=== PATIENT | male | born 1955 | race Caucasian/White ===

== ENCOUNTER 2016-07-16 14:53 | Inpatient (IN) | payer OTHER ==
[2016-07-16] VITALS (17 sets, daily range): BP systolic 112–135; BP diastolic 57–81; PULSE 63–79; RESP 15–28; TEMP 98.4; O2SAT 99–100; Ht 185.4 cm; Wt 99.9 kg
[~2016-07-16] VITALS: Ht 185.4 cm; Wt 99.9 kg
--- OUTSIDE RECORDS SUMMARY | 2016-07-16 14:58 | XMS REPORT | Referral Summary ---
Author Author [facility] Organization [facility] Address Unknown Phone Unavailable Care Team Providers Care Executive Director Global Brand Marketing Name Role Phone Breezy Rees Primary Care Physician [phone] Encounter VC Date(s): 03/18/16 - 04/04/16 [facility] [address] [place] [address] Discharge Disposition: 03-Correction Facility Attending Physician: Arcadio Chen MD Admitting Physician: Natasha Wise DO Vital Signs Most recent to 1 oldest [Reference Range]: Temperature Axillary 36.3 degC [35.2-36.7 degC] (03/27/16 3:47 AM) Temperature Oral 36.5 degC [35.8-37.3 degC] (04/04/16 4:00 AM) Temperature Temporal 36 degC Artery [36.3-37.8 *LOW* degC] (03/21/16 4:00 PM) Peripheral Pulse 74 bpm Rate [60-100 bpm] (04/04/16 8:59 AM) Heart Rate Monitored 73 bpm [60-100 bpm] (04/04/16 9:28 AM) Respiratory Rate 16 br/min [14-20 br/min] (04/04/16 9:28 AM) Blood Pressure 151/80 mmHg [90-140/60-90 mmHg] *HI* (04/04/16 8:59 AM) Mean Arterial 78 mmHg Pressure, Cuff (03/28/16 8:15 AM) Pulse Rate [60-100 74 bpm bpm] (04/04/16 2:30 AM) SpO2 95 % (04/04/16 9:28 AM) Remote Telemetry Ongoing (04/03/16 8:30 AM) Problem List Condition Effective Dates Status Health Status Informant Acute Active pain(Confirmed) At risk for Active infection(Confirmed) 1 At risk for Active injury(Confirmed)2 At risk of pressure Active sore(Confirmed) Fluid Active imbalance(Confirmed) 3 Impaired gas Active exchange(Confirmed)4 Morbid Active patient obesity(Confirmed) 1Problem added automatically by system based on initiation of At Risk for Infection in Nutrition Plan of Care 2Problem added automatically by system based on initiation of Risk for Injury Plan of Care 3Problem added automatically by system based on initiation of Fluid Volume Imbalance Plan of Care 4Problem added automatically by system based on initiation of Impaired Gas Exchange Plan of Care Allergies, Adverse Reactions, Alerts No Known Medication Allergies Medications albuterol 5 mg/mL (0.5%) inhalation solution 2.5 mg 0.5 mL, NEB, TID, 0 Refill(s) Start Date: 04/03/16 Status: Ordered amiodarone 200 mg oral tablet 200 mg 1 tabs, Oral, Daily, 0 Refill(s) Start Date: 04/03/16 Status: Ordered calcium acetate 667 mg oral capsule 1,334 mg 2 caps, Oral, TIDWM, 0 Refill(s) Start Date: 04/03/16 Status: Ordered darbepoetin atul 40 mcg/0.4 mL injectable solution 40 mcg 0.4 mL, SubCutaneous, q7day, 0 Refill(s) Start Date: 04/03/16 Status: Ordered Lopressor 100 mg oral tablet 100 mg 1 tabs, Oral, BID, 0 Refill(s) Start Date: 04/03/16 Status: Ordered [place] 5 mg-325 mg oral tablet 1 tabs, Oral, q6hr, Pain Moderate (4-6), 0 Refill(s) Start Date: 04/03/16 Status: Ordered One-A-Day Men 50 Plus 1 tabs, Oral, Daily Start Date: 03/18/16 Status: Ordered piperacillin-tazobactam 2 g-0.25 g intravenous injection See Instructions, 2.25 g IV q6hr thru 04/17/16, # 1 Each, 0 Refill(s), other reason (Rx) Start Date: 04/03/16 Status: Ordered Protonix 40 mg oral delayed release tablet 40 mg 1 tabs, Oral, Before Breakfast, 0 Refill(s) Start Date: 04/03/16 Status: Ordered sevelamer carbonate 800 mg oral tablet 800 mg 1 tabs, Oral, TIDWM, 0 Refill(s) Start Date: 04/03/16 Status: Ordered Results Blood Gases Most recent to 1 oldest [Reference Range]: pH [7.35-7.45] 7.40 (03/19/16 11:19 AM) pCO2 Art [35-45 32 mmHg mmHg] *LOW* (03/19/16 11:19 AM) Bicarbonate [22-26 20 mEq/L mEq/L] *LOW* (03/19/16 11:19 AM) Base Excess Art -4 [0-2] *LOW* (03/19/16 11:19 AM) O2 Sat Art 96.4 % [90.0-97.0 %] (03/19/16 11:19 AM) pO2 Art [80-100 86 mmHg mmHg] (03/19/16 11:19 AM) O2 Panel hfnc 3.5 lpm (03/19/16 11:19 AM) Spec Site A. radialis r. (03/19/16 11:19 AM) Hematology Most recent to 1 oldest [Reference Range]: WBC [4.8-10.8 15.6 10*3/uL 10*3/uL] *HI* (04/03/16 6:10 AM) RBC [4.60-6.20] 2.62 *LOW* (04/03/16 6:10 AM) Hgb [14.0-18.0 7.0 gm/dL gm/dL] *LOW* (04/03/16 6:10 AM) Hct [42.0-52.0 %] 24.0 % *LOW* (04/03/16 6:10 AM) MCV [82.0-99.0 fL] 91.6 fL (04/03/16 6:10 AM) MCH [27.0-32.0 pg] 26.7 pg *LOW* (04/03/16 6:10 AM) MCHC [32.0-36.0 29.2 gm/dL gm/dL] *LOW* (04/03/16 6:10 AM) RDW [11.5-14.5 %] 20.1 % *HI* (04/03/16 6:10 AM) Platelet [150-400 245 10*3/uL 10*3/uL] (04/03/16 6:10 AM) MPV [9.4-12.3 fL] 9.4 fL (04/03/16 6:10 AM) Immature 1.7 % Granulocytes *HI* [0.0-1.0 %] (03/28/16 7:53 AM) Neutrophils [51-75 86 % %] *HI* (04/03/16 6:10 AM) Band Man [0-8 %] 1 % (04/03/16 6:10 AM) [place] Man [0-1 %] 1 % (04/02/16 5:13 AM) Myelo Man [-1-0 %] 1 % *HI* (04/03/16 6:10 AM) Lymphocytes [20-46 5 % %] *LOW* (04/03/16 6:10 AM) Monocytes [4-11 %] 6 % (04/03/16 6:10 AM) Eosinophils [0-4 %] 1 % (04/03/16 6:10 AM) Basophils [0-2 %] 1 % (04/03/16 6:10 AM) Neutro Absolute 13.57 [1.90-7.00] *HI* (04/03/16 6:10 AM) Lymph Absolute 0.78 [0.80-3.30] *LOW* (04/03/16 6:10 AM) [place] Absolute 0.94 [0.30-1.00] (04/03/16 6:10 AM) Eos Absolute 0.16 [0.00-0.50] (04/03/16 6:10 AM) Baso Absolute 0.16 [0.00-0.20] (04/03/16 6:10 AM) Toxic Gran Occasional *ABN* (03/24/16 6:38 AM) Dohle Bodies Occasional *ABN* (03/24/16 6:38 AM) Hypochrom Occasional *ABN* (04/03/16 6:10 AM) Polychrom Occasional *ABN* (04/03/16 6:10 AM) Rouleaux Present *ABN* (04/02/16 5:13 AM) Nucleated RBC 0.0 /100 WBC Automated [0 /100 (04/03/16 6:10 AM) WBC] Differential Reviewed (04/03/16 6:10 AM) Coagulation Most recent to 1 oldest [Reference Range]: INR [0.9-1.2] 1.7 *HI* (03/23/16 7:32 AM) PTT [25.0-35.0 36.2 seconds seconds] *HI* (03/23/16 7:32 AM) Chemistry Most recent to 1 oldest [Reference Range]: Sodium Lvl [136-144 140 mEq/L mEq/L] (04/03/16 6:10 AM) Potassium Lvl 4.2 mEq/L [3.6-5.1 mEq/L] (04/03/16 6:10 AM) Chloride [99-109 101 mEq/L mEq/L] (04/03/16 6:10 AM) CO2 [22-32 mEq/L] 30 mEq/L (04/03/16 6:10 AM) AGAP [3-20] 9 (04/03/16 6:10 AM) BUN [4-20 mg/dL] 58 mg/dL *HI* (04/03/16 6:10 AM) Glucose Lvl [70-100 113 mg/dL mg/dL] *HI* (04/03/16 6:10 AM) Creatinine Lvl 4.86 mg/dL [0.64-1.27 mg/dL] *HI* (04/03/16 6:10 AM) eGFR [>60] 12 1 *ABN* (04/03/16 6:10 AM) Calcium Lvl 8.9 mg/dL [8.6-10.0 mg/dL] (04/03/16 6:10 AM) Albumin Lvl [3.5-4.8 1.7 gm/dL gm/dL] *LOW* (04/03/16 6:10 AM) Total Protein 5.5 gm/dL [6.1-7.9 gm/dL] *LOW* (03/21/16 4:06 AM) Globulin [1.9-4.3 3.8 gm/dL gm/dL] (03/21/16 4:06 AM) ALT [17-63 U/L] 24 U/L (03/21/16 4:06 AM) AST [15-41 U/L] 27 U/L (03/21/16 4:06 AM) Alk Phos [26-104 141 U/L U/L] *HI* (03/21/16 4:06 AM) Bili Total [0.2-1.2 1.2 mg/dL 2 mg/dL] (03/21/16 4:06 AM) Iron [65-175 mcg/dL] 17 mcg/dL *LOW* (03/19/16 9:23 AM) TIBC [268-490 125 mcg/dL mcg/dL] *LOW* (03/19/16 9:23 AM) Iron Sat [11-46 %] 14 % (03/19/16 9:23 AM) Transferrin [180-329 84 mg/dL mg/dL] *LOW* (03/19/16 9:23 AM) Ferritin Lvl [24-340 1541 ng/mL ng/mL] *HI* (03/31/16 5:59 AM) LDH [98-192 U/L] 244 U/L *HI* (03/18/16 2:29 PM) Magnesium Lvl 2.0 mg/dL [1.8-2.5 mg/dL] (04/03/16 6:10 AM) Uric Acid [4.8-8.7 9.3 mg/dL mg/dL] *HI* (03/19/16 4:11 AM) Phosphorus [2.4-4.7 5.0 mg/dL 3 mg/dL] *HI* (04/03/16 6:10 AM) Troponin [<0.06 <0.05 ng/mL ng/mL] (03/19/16 9:18 PM) Ammonia [9-35 31 mcmol/L mcmol/L] (03/19/16 2:46 PM) AFP [0.0-8.8 Intl 2.4 Intl Units/mL Units/mL] (03/19/16 4:11 AM) Lactic Acid Lvl 1.3 mEq/L [0.5-2.2 mEq/L] (03/18/16 2:29 PM) Vitamin B12 Lvl >2000 pg/mL [213-816 pg/mL] *HI* (03/19/16 2:46 PM) Folate Lvl [7.0-31.4 7.2 ng/mL ng/mL] (03/19/16 2:46 PM) PTH (Parathyroid 40.0 pg/mL Hormone) [12.0-88.0 (03/31/16 5:59 AM) pg/mL] CEA [0.0-5.0 ng/mL] 4.8 ng/mL 4 (03/18/16 2:29 PM) PSA (wihout Reflex 0.4 ng/mL 5 Free) [0.0-4.5 (03/19/16 4:11 AM) ng/mL] Chol [0-200 mg/dL] 73 mg/dL (03/19/16 9:23 AM) Trig [0-150 mg/dL] 49 mg/dL (03/19/16 9:23 AM) HDL [>40 mg/dL] 24 mg/dL *ABN* (03/19/16 9:23 AM) LDL [0-100 mg/dL] 39 mg/dL (03/19/16 9:23 AM) VLDL Cholesterol 10 mg/dL [0-30 mg/dL] (03/19/16 9:23 AM) Cardiac Risk 3.0 [0.0-5.7] (03/19/16 9:23 AM) HIV 1 and 2 Abs Negative (03/19/16 4:11 AM) TSH with Reflex Free 4.69 T4 [0.35-5.50] (03/20/16 3:22 AM) Hgb A1c [4.1-5.6 %] 5.8 % *HI* (03/20/16 3:22 AM) eAvg Glucose 119.8 mg/dL (03/20/16 3:22 AM) 1Result Comment: Multiply eGFR results by 1.21 for race. 2Result Comment: Naproxen, specifically the metabolite O-desmethylnaproxen, may cause spurious elevation in Total Bilirubin levels. 3Result Comment: High dosages of liposomal Amphotericin B (AmBisome) therapy or other drug preparations that use a liposomal envelope to facilitate drug delivery may cause falsely elevated results for phosphorus. 4Result Comment: Normal Ranges For CEA; Males: Non Smokers: <3.4 ng/ml Smokers: <6.2 ng/ml Females: Non Smokers: <2.5 ng/ml Smokers: <4.9 ng/ml 5Result Comment: AUA PSA Best Practice Guidelines: Age-Adjusted PSA Values by Ethnic Group Age Range Asians - Caucasians Americans 40-49 0-2.0 0-2.0 0-2.5 50-59 0-3.0 0-4.0 0-3.5 60-69 0-4.0 0-4.5 0-4.5 70-79 0-5.0 0-5.5 0-6.5 Urinalysis Most recent to 1 oldest [Reference Range]: UA Color Yellow (03/18/16 5:42 PM) UA Appear Cloudy *ABN* (03/18/16 5:42 PM) UA pH [5.0-8.0] 5.0 (03/18/16 5:42 PM) UA Leuk Est Negative [Negative] (03/18/16 5:42 PM) UA Nitrite Negative [Negative] (03/18/16 5:42 PM) UA Protein Negative [Negative] (03/18/16 5:42 PM) UA Glucose Negative [Negative] (03/18/16 5:42 PM) UA Ketones Negative [Negative] (03/18/16 5:42 PM) UA Urobilinogen Negative [<1.0] (03/18/16 5:42 PM) UA Bili [Negative] Negative (03/18/16 5:42 PM) UA Blood [Negative] Pos 2+ *ABN* (03/18/16 5:42 PM) UA Spec Grav 1.010 [1.003-1.030] (03/18/16 5:42 PM) Type [place] (03/18/16 5:42 PM) UA WBC [0-4] 5-10 *ABN* (03/18/16 5:42 PM) UA RBC [0-2] 20-50 *ABN* (03/18/16 5:42 PM) Epithelial Cells 0-2 (03/18/16 5:42 PM) UA Bacteria Rare (03/18/16 5:42 PM) UA Hyal Cast [0-3] 4-6 *ABN* (03/18/16 5:42 PM) UA Gran Cast 1-3 *ABN* (03/18/16 5:42 PM) UA Mucous Present (03/18/16 5:42 PM) U Eos [-1-0 %] 0 % (03/18/16 5:42 PM) Blood Bank Results Most recent to 1 oldest [Reference Range]: ABO/Rh O POS (04/03/16 2:13 PM) Antibody Screen Tube NEG (04/03/16 2:13 PM) Microbiology Reports TEST: Fluid Culture and Smear STATUS: Auth (Verified) BODY SITE: SOURCE: Fluid COLLECTED DATE/TIME: 03/20/16 12:45 PM Gram Smear Numerous (20-50/OIF) white blood cells No squamous epithelial cells Few (1-5/OIF) gram negative rods OIF=Oil Immersion Field LPF=Low Power Field TEST: Anaerobic Culture STATUS: Auth (Verified) BODY SITE: SOURCE: Fluid COLLECTED DATE/TIME: 03/20/16 12:45 PM Anaerobic Culture No anaerobes isolated TEST: Fluid Culture and Smear STATUS: Auth (Verified) BODY SITE: SOURCE: Fluid COLLECTED DATE/TIME: 03/20/16 12:42 PM Gram Smear Few (1-5/OIF) white blood cells No microorganisms observed OIF=Oil Immersion Field LPF=Low Power Field TEST: Anaerobic Culture STATUS: Auth (Verified) BODY SITE: SOURCE: Fluid COLLECTED DATE/TIME: 03/20/16 12:42 PM Anaerobic Culture No anaerobes isolated TEST: Fluid Culture and Smear STATUS: Auth (Verified) BODY SITE: SOURCE: Fluid COLLECTED DATE/TIME: 03/20/16 11:44 AM Gram Smear Numerous (20-50/OIF) white blood cells Numerous (20-50/OIF) red blood cells No microorganisms observed OIF=Oil Immersion Field LPF=Low Power Field TEST: Anaerobic Culture STATUS: Auth (Verified) BODY SITE: SOURCE: Fluid COLLECTED DATE/TIME: 03/20/16 11:44 AM Anaerobic Culture No anaerobes isolated TEST: Blood Culture1 STATUS: Auth (Verified) BODY SITE: SOURCE: Blood COLLECTED DATE/TIME: 03/18/16 2:29 PM Blood Culture No growth after 5 days of incubation. TEST: Blood Culture STATUS: Auth (Verified) BODY SITE: SOURCE: Blood COLLECTED DATE/TIME: 03/18/16 2:22 PM Blood Culture No growth after 5 days of incubation. INTERPRETIVE DATA 1Aerobic bottle ONLY received Immunizations No data available for this section Procedures Procedure Date Related Diagnosis Body Site Image-guided fluid collection drainage by 03/20/16 catheter (eg, abscess, hematoma, seroma, lymphocele, cyst); visceral (eg, kidney, liver, spleen, lung/mediastinum), percutaneous Arterial puncture, withdrawal of blood for 03/19/16 diagnosis Social History No data available for this section Assessment and Plan No data available for this section
--- OUTSIDE RECORDS SUMMARY | 2016-07-16 14:58 | XMS REPORT | Continuity of Care Document ---
Author Author [facility] Organization [facility] Address Unknown Phone Unavailable Allergies Medications Problems Procedures Results Encounters ACCT No. Visit Date/Time Discharge Status Pt. Type Provider Facility Loc./Unit Complaint [id number] 05/07/2016 08:20:00 PEN Outpatient CM [facility] S/P RT [facility]
--- OUTSIDE RECORDS SUMMARY | 2016-07-16 14:58 | XMS REPORT | Continuity of Care Document ---
Author Author [facility] Organization [facility] Address Unknown Phone Unavailable Support Name Relationship Address Phone CRISTO HOLMAN MD Caregiver [address] [place] [address] Unavailable JOSE MARIA GRIMALDO DO Caregiver [address] [place] [address] Unavailable JOSE MARIA GRIMALDO DO Caregiver [address] [place] [address] Unavailable JOSE MARIA GRIMALDO DO Caregiver [address] [place] [address] Unavailable DIANNA AWAN Next Of Kin [id number] [place] [address] Insurance Providers Guarantor Kailash Awan Address [address] [place] [address] Email [email or web address] Payer [facility] Preferred Policy Number [id number] Subscriber's Name Kailash Awan Relationship 18 Self Group Number [id number] Advance Directives Directive Response Recorded Date/Time Advanced Directives Type None 03/08/16 3:45pm Ordered Resuscitation Status Full Code 03/08/16 7:08pm Resuscitation Documents on File No 03/08/16 8:04pm DPOA for Healthcare Only No 03/14/16 3:25pm Living Will No 03/08/16 8:04pm Advance Directive Consult Information Given 03/12/16 12:08pm Problems Active Problems Medical Problem Onset Date Status Acute febrile illness Unknown Acute Acute renal failure Unknown Acute Bilateral pleural effusion Unknown Acute Coronavirus infection Unknown Acute History of TIA (transient ischemic attack) Unknown Resolved History of seasonal allergies Unknown Resolved Liver lesion, right lobe Unknown Acute Metabolic acidosis with normal anion gap and bicarbonate losses Unknown Acute Night sweats Unknown Acute Obesity Unknown Chronic Respiratory failure, acute Unknown Acute Septic shock with acute organ dysfunction due to anaerobic bacteria Unknown Resolved Past Problems Medical Problem Onset Date Dehydration Unknown Hyperemia Unknown Pleural effusion Unknown Sepsis Unknown Medications Past Home Medications Medication Directions Ordered Status Aspirin (Aspir 81) 81 Mg Tablet.dr 81 Mg Oral As Needed 03/08/16 Discontinued D-Methorphan/Pe/Acetaminophen (Tylenol Cold Max Day Caplet) 1 Each Tablet, 2 Tab Oral As Needed 03/08/16 Discontinued Dm/P-Ephed/Acetaminoph/Doxylam (Christine-Pontiac Plus Cold+Flu Pkt) 1 Each Powd.pack, 1 Packet Oral As Needed 03/08/16 Discontinued Dm/Pe/Acetaminophen/Doxylamine (Nighttime Severe Cold-Flu Liq) 355 Ml Liquid, 30 Ml Oral Bedtime as needed for Prn Orders 03/08/16 Discontinued Fexofenadine Hcl (Kandace Allergy) 180 Mg Tablet, 180 Mg Oral Daily as needed for Prn Orders 03/08/16 Discontinued Guaifenesin/Dextromethorphan (Mucinex Dm Er 600-30 Mg Tablet) 1 Each Tab.er.12h , 1 Tab Oral Every 12 Hrs Prn 03/08/16 Discontinued Multivitamin With Minerals (Men's One Daily) 1 Each Tablet, 1 Tab Oral Daily 03/08/16 Discontinued Vit D3-Vit C , 1 Cap Oral Twice A Day 03/08/16 Discontinued Social History Social History Problem Response Recorded Date/Time Onset Date Status Reason for Hospitalization Effusions 03/18/2016 10:07am Not Applicable Not Applicable Hx Substance Use No 03/08/2016 3:45pm Not Applicable Not Applicable Hx Alcohol Use Y OCC 03/08/2016 3:45pm Not Applicable Not Applicable Query Response Start Date Stop Date Smoking Status Never smoker Hospital Discharge Instructions Instructions: Care Instructions: Reason for Hospitalization: Effusions I was in the hospital because (patient own words): "TOLD TO GO TO ER BY DR. GRIMALDO FOR ELEVATED WBC" Discharge Diet: Renal, fluid restrict to 1500ml/day Discharge Activity: bedrest Follow Up Appointments: per [facility] Pending Lab / Results: Will be notified Wound/Incision Care: n/a Pain Scale Utilized to Educate Patient: 0-10 Pain Scale Pain Management/Treatment: n/a Expected Signs/Symptoms: n/a Notify Physician If: n/a During Business Hours:: Please call the physician's office After Business Hours:: Please call [phone] and have the aggregate conveyor operator page the physician. Condition at time of discharge: Fair Plan of Care Discharge Date 03/18/16 12:23pm Disposition 02 TO [facility] Instructions/Education Provided Pleural Effusion Prescriptions See Medication Section Additional Instructions/Education none Care Plan and Goals See Discharge Instructions Section Functional Status Query Response Date Recorded Mobility Status Transfer w/assist March 18, 2016 10:07am Assistive Devices None March 18, 2016 10:07am Activity Limitations Weakness Fatigue Shortness of breath March 18, 2016 10:07am Feeding Ability Assist March 18, 2016 10:07am Toileting Ability Dependent March 18, 2016 10:07am Grooming Ability Assist March 18, 2016 10:07am Dressing Ability Assist March 18, 2016 10:07am Driving Ability Assist March 18, 2016 10:07am Housework Ability Dependent March 18, 2016 10:07am Meal Preparation Ability Assist March 18, 2016 10:07am Stair Climbing Ability Assist March 18, 2016 10:07am Ability to complete ADL's impeded by Impaired Mobility March 18, 2016 10:07am Cognitive/Perceptual Impairments None March 18, 2016 10:07am Preferred Method of Learning Listening March 17, 2016 7:30pm Allergies, Adverse Reactions, Alerts Allergen Type Severity Reaction Status Last Updated No Known Drug Allergies Allergy Unknown Active 06/28/15 Immunizations Query Response on File Recorded Date/Time Hx Influenza Vaccination Y JAN 2016 03/08/16 8:08pm Hx Pneumococcal Vaccination No 03/08/16 8:08pm Hx Influenza Vaccination Y JAN 2016 03/08/16 8:08pm Influenza Vaccine Hx JANUARY 2016 03/10/16 12:00pm Vital Signs Acute Vital Signs Vital Response Date/Time Temperature (Fahrenheit) 97.1 deg F (96.8 - 99.1) 03/18/2016 12:00pm Temperature (Calculated Celsius) 36.52987 degrees C (36.0 - 37.3) 03/18/2016 12:00pm Pulse Rate (adult) 99 bpm (60 - 100) 03/18/2016 12:00pm Respiratory Rate 19 breaths/min (10 - 20) 03/18/2016 12:00pm O2 Sat by Pulse Oximetry 95 % (90 - 100) 03/18/2016 12:00pm Oxygen Delivery Method Bi-pap 03/17/2016 9:37pm Oxygen Delivery Method Bi-pap 03/18/2016 12:00pm Oxygen Flow Rate 3.00 L/min 03/18/2016 11:01am Fraction of Inspired Oxygen (FIO2) 25 % 03/18/2016 12:00pm Blood Pressure 134/89 mm Hg 03/18/2016 12:00pm Blood Pressure Source Automatic Cuff 03/18/2016 12:00pm Height (Feet) 6 feet 03/17/2016 12:42pm Height (Inches) 2.00 inches 03/17/2016 12:42pm Weight (Kilograms) 146.500 kg 03/17/2016 11:00am Body Mass Index (BMI) 33.0 03/08/2016 8:03pm Results Laboratory Results Test Name Result Units Flags Reference Collection Date/Time Result Date/ Time Comments White Blood Count 22.3 T/MM3 H 4.5-11.0 03/18/2016 4:03/18/2016 5: 22am Red Blood Count 3.90 M/MM3 L 4.50-5.90 03/18/2016 4:03/18/2016 5: 22am Hemoglobin 10.7 GM/DL L 13.5-17.5 03/18/2016 4:03/18/2016 5:22am Hematocrit 33.5 % L 41-53 03/18/2016 4:03/18/2016 5:22am Mean Corpuscular Volume 85.9 UM3 80-100 03/18/2016 4:03/18/2016 5: 22am Mean Corpuscular Hemoglobin 27.4 UUG 26-34 03/18/2016 4:2016 5:22am Mean Corpuscular Hemoglobin Concent 31.9 GM/DL 31-37 03/18/2016 4:03/18/2016 5:22am RDW Standard Deviation 52.6 FL H 36.9-50.2 03/18/2016 4:03/18/2016 5:22am Platelet Count 170 T/MM3 130-400 03/18/2016 4:03/18/2016 5:22am Mean Platelet Volume 11.0 UM3 9.4-12.4 03/18/2016 4:03/18/2016 5: 22am Neutrophils % (Manual) 76.0 % H 33-66 03/18/2016 4:03/18/2016 5: 28am Band Neutrophils % 10.0 % H 0-6 03/18/2016 4:03/18/2016 5:28am Lymphocytes % (Manual) 11.0 % L 23-45 03/18/2016 4:03/18/2016 5: 28am Monocytes % (Manual) 3.0 % 0-9.0 03/18/2016 4:03/18/2016 5:28am Eosinophils % (Manual) 2.0 % 0-4 03/17/2016 4:03/17/2016 6:29am Basophils % (Manual) 1.0 % 0-2 03/17/2016 4:03/17/2016 6:29am Metamyelocytes % 2.0 % H 0-0 03/15/2016 3:03/15/2016 6:46am Myelocytes % 1.0 % H 0-0 03/17/2016 4:03/17/2016 6:29am Reactive Lymphocytes % 1.0 % H 0-0 03/16/2016 4:03/16/2016 7:04am Band Neutrophils # 2.2 T/MM3 03/18/2016 4:03/18/2016 5:28am Absolute Neutrophils (Manual) 16.9 T/MM3 H 1.8-7.7 03/18/2016 4: 5:28am Lymphocytes # (Manual) 2.5 T/MM3 1-4.8 03/18/2016 4:03/18/2016 5: 28am Monocytes # (Manual) 0.7 T/MM3 0-0.8 03/18/2016 4:03/18/2016 5: 28am Eosinophils # (Manual) 0.4 T/MM3 0-0.5 03/17/2016 4:03/17/2016 6: 29am Basophils # (Manual) 0.2 T/MM3 0-0.2 03/17/2016 4:03/17/2016 6: 29am Metamyelocytes # 0.4 T/MM3 03/15/2016 3:03/15/2016 6:46am Myelocytes # 0.2 T/MM3 03/17/2016 4:03/17/2016 6:29am Reactive Lymphocytes # 0.2 T/MM3 H 0-0 03/16/2016 4:03/16/2016 7: 04am Nucleated Red Blood Cells 2 03/17/2016 4:03/17/2016 6:29am Red Cell Morphology Comment NORMAL 03/18/2016 4:03/18/2016 5: 28am Prothromb Time International Ratio 1.55 H 0.76-1.04 03/17/2016 4:03/17/2016 4:35am THERAPUTIC RANGE=2.00-3.00 FOR ANTI-THROMBOSIS THERAPUTIC RANGE=2.50-3.50 FOR IMPLANTED VALVE Icterus Index < 2 0-7 03/18/2016 4:03/18/2016 4:50am Chemistry Specimen Hemolysis < 15 0-25 03/18/2016 4:03/18/2016 4 :50am 0-25: Specimen Exhibited No Hemolysis. Turbidity < 20 0-20 03/18/2016 4:03/18/2016 4:50am Sodium Level 143 MEQ/L 134-144 03/18/2016 4:03/18/2016 4:50am Potassium Level 3.9 MEQ/L 3.6-5 03/18/2016 4:03/18/2016 4:50am Chloride Level 111 MEQ/L H 98-107 03/18/2016 4:03/18/2016 4:50am Carbon Dioxide Level 20 MEQ/L L 22-30 03/18/2016 4:03/18/2016 4: 50am Anion Gap 12 MEQ/L 5-15 03/18/2016 4:03/18/2016 4:50am Blood Urea Nitrogen 56.0 MG/DL *H 9-20 03/18/2016 4:03/18/2016 5: 35am Creatinine 4.0 MG/DL D H 0.8-1.5 03/18/2016 4:03/18/2016 5:35am BUN/Creatinine Ratio 14 RATIO 6-03/18/2016 4:03/18/2016 4:50am Glomerular Filtration Rate Calc 15 03/18/2016 4:03/18/2016 4: 50am Glucose Level 139 MG/DL H 75-110 03/18/2016 4:03/18/2016 4:50am Calculated Osmolality 293 MOSM/KG H 261-280 03/18/2016 4:2016 4:50am Calcium Level 8.2 MG/DL L 8.4-10.2 03/18/2016 4:03/18/2016 4:50am Phosphorus Level 7.1 MG/DL H 2.5-4.5 03/18/2016 4:03/18/2016 4: 50am Total Bilirubin 0.70 MG/DL 0.20-1.30 03/17/2016 4:03/17/2016 4: 41am Unconjugated Bilirubin 0.00 MG/DL 0.00-1.10 03/16/2016 4:2016 5:07am Conjugated Bilirubin 0.00 MG/DL 0.00-0.30 03/16/2016 4:03/16/2016 5:07am Alkaline Phosphatase 235 U/L H 38-126 03/17/2016 4:03/17/2016 4: 41am Total Protein 5.7 G/DL L 6.3-8.2 03/17/2016 4:03/17/2016 4:41am Albumin 2.2 G/DL L 3.5-5.0 03/18/2016 4:03/18/2016 4:50am Globulin 3.6 G/DL 2.4-3.6 03/17/2016 4:03/17/2016 4:41am Albumin/Globulin Ratio 0.6 RATIO L 1.1-2.2 03/17/2016 4:03/17/2016 4:41am Aspartate Amino Transf (AST/SGOT) 32 U/L 17-59 03/17/2016 4:2016 4:41am Alanine Aminotransferase (ALT/SGPT) 61 U/L 21-72 03/17/2016 4: 4:41am Troponin I 0.046 ng/ml 0-0.12 03/10/2016 4:04pm 03/10/2016 7:21pm Troponin values with a difference of 55% increase from orginal troponin value represent a true biological DELTA value. (%increase Calc=Orginal Troponin value, divided by subsequent Troponin value, multiplied by 100) C-Reactive Protein 143.7 MG/L H 0-9 03/15/2016 3:46am 03/15/2016 9:32am Magnesium Level 2.3 MG/DL 1.6-2.3 03/17/2016 4:13am 03/17/2016 4:41am Uric Acid 6.2 MG/DL 3.5-8.5 03/15/2016 3:46am 03/15/2016 4:13am Plasma Lactate 1.4 MMOL/L 0.6-2.2 03/12/2016 4:42am 03/12/2016 5:38am Procalcitonin 20.34 NG/ML *H 03/13/2016 4:59am 03/13/2016 6:02am PCT < /=0.5 ng/mL - sepsis not likely; PCT >0.5 and </=2 ng/mL - sepsis possible; PCT >2 ng/mL - sepsis likely; PCT >/=10 ng/mL - systemic inflammatory response - sepsis or septic shock highly indicated. Iron Level 33 UG/DL L 49-181 03/10/2016 4:04pm 03/12/2016 12:59am Total Iron Binding Capacity 148 UG/DL L 261-497 03/10/2016 4:04pm 2016 1:08am Percent Iron Saturation 22 % 13-59 03/10/2016 4:04pm 03/12/2016 1:08am Hepatitis A IgM Antibody NEGATIVE NEGATIVE 03/10/2016 4:04pm 2016 5:18am Hepatitis B Surface Antigen NEGATIVE NEGATIVE 03/10/2016 4:04pm 03/13 5:13am Hepatitis B Core IgM Antibody NEGATIVE NEGATIVE 03/10/2016 4:04pm 5:18am Hepatitis C Antibody NEGATIVE NEGATIVE 03/10/2016 4:04pm 03/13/2016 5 :30am Arterial Blood pH 7.440 7.350-7.450 03/17/2016 4:30pm 03/17/2016 4: 35pm Arterial Blood Partial Pressure CO2 29 MMHG L 34-45 03/17/2016 4:30pm 4:35pm Arterial Blood pO2 at Patient Temp 86 MMHG 80-100 03/17/2016 4:30pm 4:35pm Arterial Blood HCO3 20 MEQ/L L 22-26 03/17/2016 4:30pm 03/17/2016 4: 35pm Arterial Blood Total CO2 20.6 MEQ/L L 23-27 03/17/2016 4:30pm 2016 4:35pm Arterial Blood Base Excess -3.4 MMOL/L L -2.0-2.0 03/17/2016 4:30pm 4:35pm Arterial Blood Oxygen Saturation 97.0 % 95.0-98.0 03/17/2016 4:30pm 4:35pm Blood Gas Oxygen Percent Given 25 03/17/2016 4:30pm 03/17/2016 4: 35pm Oxygen Delivery Method (LAB) BPAP, % 03/17/2016 4:30pm 03/17/2016 4 :35pm Urine Random Creatinine 100.2 MG/DL 03/14/2016 2:10pm 03/14/2016 2: 32pm Urine Random Sodium 20 MEQ/L L 30-90 03/14/2016 2:10pm 03/14/2016 2: 32pm CSF Color COLORLESS 03/10/2016 11:20pm 03/10/2016 11:55pm CSF Turbidity CLEAR 03/10/2016 11:20pm 03/10/2016 11:55pm CSF Total Nucleated Cell Count 3 /MM3 0-5 03/10/2016 11:20pm 2016 12:08am CSF RBC 2000 /MM3 H 0-0 03/10/2016 11:20pm 03/11/2016 12:08am CSF Neutrophils 47 % 03/10/2016 11:20pm 03/11/2016 12:16am CSF Lymphocytes 53 % 03/10/2016 11:20pm 03/11/2016 12:16am CSF Monocytes 0 % 03/10/2016 11:20pm 03/11/2016 12:16am CSF Eosinophils % 0 % 03/10/2016 11:20pm 03/11/2016 12:16am CSF Basophils 0 % 03/10/2016 11:20pm 03/11/2016 12:16am CSF Other Cells % 0 % 03/10/2016 11:20pm 03/11/2016 12:16am CSF Glucose 42 MG/DL 40-70 03/10/2016 11:20pm 03/11/2016 12:01am CSF Total Protein 46 MG/DL 12-60 03/10/2016 11:20pm 03/11/2016 12:01am Stool Occult Blood NEGATIVE 03/14/2016 10:08pm 03/14/2016 10:24pm Adenovirus (PCR) NEGATIVE NEGATIVE 03/08/2016 7:10pm 03/08/2016 8: 40pm Coronavirus Type 229E (PCR) DETECTED A NEGATIVE 03/08/2016 7:10pm 01/2017 8:40pm Coronavirus Type HKU1 (PCR) NEGATIVE NEGATIVE 03/08/2016 7:10pm 03/08 8:40pm Coronavirus Type NL63 (PCR) NEGATIVE NEGATIVE 03/08/2016 7:10pm 03/08 8:40pm Coronavirus Type OC43 (PCR) NEGATIVE NEGATIVE 03/08/2016 7:10pm 03/08 8:40pm Human Metapneumovirus (PCR) NEGATIVE NEGATIVE 03/08/2016 7:10pm 03/08 8:40pm Enterovirus/Rhinovirus (PCR) NEGATIVE NEGATIVE 03/08/2016 7:10pm 01/2017 8:40pm Influenza Virus Type A (PCR) NEGATIVE NEGATIVE 03/08/2016 7:10pm 01/2017 8:40pm Influenza Virus Type B (PCR) NEGATIVE NEGATIVE 03/08/2016 7:10pm 01/2017 8:40pm Parainfluenza Type 1 (PCR) NEGATIVE NEGATIVE 03/08/2016 7:10pm 2016 8:40pm Parainfluenza Type 2 (PCR) NEGATIVE NEGATIVE 03/08/2016 7:10pm 2016 8:40pm Parainfluenza Type 3 (PCR) NEGATIVE NEGATIVE 03/08/2016 7:10pm 2016 8:40pm Parainfluenza Type 4 (PCR) NEGATIVE NEGATIVE 03/08/2016 7:10pm 2016 8:40pm Respiratory Syncytial Virus (PCR) NEGATIVE NEGATIVE 03/08/2016 7:10pm 03/08/2016 8:40pm Bordetella parapertussis DNA (PCR) NEGATIVE NEGATIVE 03/08/2016 7: 10pm 03/08/2016 8:40pm Chlamydia pneumoniae DNA (PCR) NEGATIVE NEGATIVE 03/08/2016 7:10pm 8:40pm Mycoplasma pneumoniae (PCR) NEGATIVE NEGATIVE 03/08/2016 7:10pm 03/08 8:40pm Escherichia coli (PCR) NEGATIVE NEGATIVE 03/10/2016 11:20pm 2016 7:26am Haemophilus influenzae DNA NEGATIVE NEGATIVE 03/10/2016 11:20pm 03/11 7:26am Listeria (PCR) NEGATIVE NEGATIVE 03/10/2016 11:20pm 03/11/2016 7: 26am Neisseria meningitidis (PCR) NEGATIVE NEGATIVE 03/10/2016 11:20pm 7:26am Group B Streptococcus (PCR) NEGATIVE NEGATIVE 03/10/2016 11:20pm 7:26am Streptococcus pneumoniae (PCR) NEGATIVE NEGATIVE 03/10/2016 11:20pm 03/11/2016 7:26am Cytomegalovirus DNA Detection NEGATIVE NEGATIVE 03/10/2016 11:20pm 7:26am Enterovirus/Rhinovirus (PCR) NEGATIVE NEGATIVE 03/10/2016 11:20pm 7:26am Herpes Simplex Virus I DNA (PCR) NEGATIVE NEGATIVE 03/10/2016 11:20pm 03/11/2016 7:26am Herpes Simplex Virus II DNA (PCR) NEGATIVE NEGATIVE 03/10/2016 11: 20pm 03/11/2016 7:26am Herpesvirus 6 DNA (PCR) NEGATIVE NEGATIVE 03/10/2016 11:20pm 2016 7:26am Parechovirus (PCR) NEGATIVE NEGATIVE 03/10/2016 11:20pm 03/11/2016 7: 26am Varicella-Zoster Virus DNA (PCR) NEGATIVE NEGATIVE 03/10/2016 11:20pm 03/11/2016 7:26am Cryptococcus Antigen NEGATIVE NEGATIVE 03/10/2016 11:20pm 03/11/2016 7:26am Correlate results from this panel with clinical history and epidemiological data when evaluating the patient. Urine Collection Type NULL INDWELLING 03/14/2016 2:10pm 2016 2:21pm Urine Color YELLOW YELLOW 03/14/2016 2:10pm 03/14/2016 2:21pm Urine Turbidity CLOUDY CLEAR 03/14/2016 2:10pm 03/14/2016 2:21pm Urine Specific Harper 1.025 1.015-1.025 03/14/2016 2:10pm 2016 2:21pm Urine pH 5.5 5.0-8.0 03/14/2016 2:1003/14/2016 2:21pm Urine Leukocyte Esterase NEGATIVE NEGATIVE 03/14/2016 2:10pm 2016 2:21pm Urine Nitrite NEGATIVE NEGATIVE 03/14/2016 2:1003/14/2016 2:21pm Urine Protein 2+ A NEGATIVE 03/14/2016 2:10pm 03/14/2016 2:21pm Urine Glucose (UA) NEGATIVE NEGATIVE 03/14/2016 2:10pm 03/14/2016 2: 21pm Urine Ketones NEGATIVE NEGATIVE 03/14/2016 2:1003/14/2016 2:21pm Urine Urobilinogen 0.2 EU/DL NORMAL 03/14/2016 2:10pm 03/14/2016 2: 21pm Urine Bilirubin NEGATIVE NEGATIVE 03/14/2016 2:1003/14/2016 2: 21pm Urine Blood 3+ A NEGATIVE 03/14/2016 2:10pm 03/14/2016 2:21pm Urine WBC 1-3 /HPF 0-5 03/14/2016 2:10pm 03/14/2016 2:34pm Urine RBC 50-200 /HPF H 0-3 03/14/2016 2:10pm 03/14/2016 2:34pm Urine Squamous Epithelial Cells 0-5 03/14/2016 2:10pm 03/14/2016 2: 34pm Urine Bacteria 4+ H NEGATIVE 03/14/2016 2:10pm 03/14/2016 2:34pm Urine Hyaline Casts 0-1 /LPF 03/08/2016 7:10pm 03/08/2016 7:27pm Urine Fine Granular Casts 0-1 /LPF 03/14/2016 2:10pm 03/14/2016 2: 34pm Urine Culture Indicated CULT NOT INDICATED 03/14/2016 2:10pm 2016 2:34pm Anti-Nuclear Antibody (LAB) Negative Negative 03/10/2016 4:04pm 03/12 10:39pm ANYI Panel, Quantitative performed at [facility] Reference Lab, [address] [place] [address] Crt Radha Munroe DO Urine Eosinophils 0 % -1-0 03/14/2016 2:10pm 03/14/2016 10:02pm Eosinophil Count, Urine performed at [facility] Reference Lab, [address] [place] [address] Crt Radha Munroe DO Gamma Glutamyl Transpeptidase 101 U/L H 12-64 03/14/2016 5:42am 2016 3:46pm GGT performed at [facility] Reference Lab, [address] [place] [id number] Crt Radha Munroe DO West Nile Virus IgG Antibody Negative Negative 03/09/2016 4:37am 10:34pm Test Performed by: [place] [address] Elevator Repairer Apprentice: Carlos Schaffer II, M.D., Ph.D. West Nile Virus Antibody IgG and IgM, [place] [address] Crt Sarbjit Fisher MD Test Performed by: [place] [address] Elevator Repairer Apprentice: Carlos Schaffer II, M.D., Ph.D. --- 03/14/16 2234 --- WEST NILE IGG previously reported as: Negative Test Performed by: [place] [address] Elevator Repairer Apprentice: Carlos Schaffer II, M.D., Ph.D. West Nile Virus Antibody IgG and IgM, [place] [address] Crt Sarbjit Fisher MD Test Performed by: [place] [address] Elevator Repairer Apprentice: Carlos Schaffer II, M.D., Ph.D. West Nile Virus IgM Antibody Negative Negative 03/09/2016 4:37am 10:34pm West Nile Virus Interpretation SEE BELOW 03/09/2016 4:37am 2016 10:34pm No antibodies to WNV detected. Repeat testing in 10-14 days if clinical suspicion persists. Test Performed by: [place] [address] Elevator Repairer Apprentice: Carlos Schaffer II, M.D., Ph.D. West Nile Virus Antibody IgG and IgM, [place] [address] Crt Sarbjit Fisher MD Microbiology Results Procedure Source Organism/Result Collection Date/Time Result Date/Time Result Status Blood Culture Peripheral/Iv Start BACTEROIDES FRAGILIS 03/08/2016 4:20pm 03/13/2016 4:11pm Final Blood Culture Cath/Port/Line/Picc NO GROWTH AFTER 5 DAYS 03/10/2016 4:06pm 03/15/2016 4:07pm Final CSF Culture Cerebral Spinal Fluid NO GROWTH AFTER 72 HOURS 03/10/2016 11: 20pm 03/13/2016 11:49pm Final Name: KAILASH AWAN Unit #: [id number] : 1955 Sex: M DISCHARGE SUMMARY Admit Date: 03/08/16 Report #: [id number] [facility] General Date Date DATE: 03/18/16 TIME: 11:57 Attending Physician Jelly Soriano DO Admitting Physician Jose Maria Grimaldo DO Consulting Physician Kye Celis MD, MD Jason Taylor, MD Admitting Diagnosis pleural effusion, elevated white count Discharge Diagnosis Acute respiratory failure Bacteroides septicemia Acute renal failure Volume overload Liver abscess Coronavirus Procedures Lumbar puncture After informed consent obtained - pt was assisted to right lateral side. Back was cleaned and prep with chloraprep scrub then sterile drape applied. Local infiltrate with lidocaine 1% 3 ml at L3-4 space. Then 24 gauge spinal needle advanced until CSF to free flow. Negative paraesthesia negative blood. Approximately 16ml spinal fluid collected in sterile test tubes and labeled. Pt tolerated procedure with out difficulty. Arterial line placement Right wrist cleaned with chloraprep scrub then 20 gauge Arrow art-line catheter advanced with ultrasound guidance. Catheter then secured with silk suture and dressed with tegaderm dressing. Pressure line flushed and zeroed prior to connecting to catheter. Pt tolerated without complication. Liver Biopsy Impression: Successful sonographic guided biopsy of right hepatic lobe masses with pathology pending. Patient seemed to tolerate the procedure well. Laboratory Laboratory Tests Test 03/17/16 04:13 03/17/16 16:30 03/18/16 04:27 White Blood Count 20.9T/MM3 (4.5-11.0) 22.3T/MM3 (4.5-11.0) Red Blood Count 3.85M/MM3 (4.50-5.90) 3.90M/MM3 (4.50-5.90) Hemoglobin 10.6GM/DL (13.5-17.5) 10.7GM/DL (13.5-17.5) Hematocrit 33.2% (41-53) 33.5% (41-53) Mean Corpuscular Volume 86.2UM3 (80-100) 85.9UM3 (80-100) Mean Corpuscular Hemoglobin 27.5UUG (26-34) 27.4UUG (26-34) Mean Corpuscular Hemoglobin Concent 31.9GM/DL (31-37) 31.9GM/DL (31-37) RDW Standard Deviation 52.7FL (36.9-50.2) 52.6FL (36.9-50.2) Platelet Count 185T/MM3 (130-400) 170T/MM3 (130-400) Mean Platelet Volume 10.7UM3 (9.4-12.4) 11.0UM3 (9.4-12.4) Neutrophils % (Manual) 77.0% (33-66) 76.0% (33-66) Band Neutrophils % 6.0% (0-6) 10.0% (0-6) Lymphocytes % (Manual) 10.0% (23-45) 11.0% (23-45) Monocytes % (Manual) 3.0% (0-9.0) 3.0% (0-9.0) Eosinophils % (Manual) 2.0% (0-4) Basophils % (Manual) 1.0% (0-2) Myelocytes % 1.0% (0-0) Absolute Neutrophils (Manual) 16.1T/MM3 (1.8-7.7) 16.9T/MM3 (1.8-7.7) Band Neutrophils # 1.3T/MM3 2.2T/MM3 Lymphocytes # (Manual) 2.1T/MM3 (1-4.8) 2.5T/MM3 (1-4.8) Monocytes # (Manual) 0.6T/MM3 (0-0.8) 0.7T/MM3 (0-0.8) Eosinophils # (Manual) 0.4T/MM3 (0-0.5) Basophils # (Manual) 0.2T/MM3 (0-0.2) Myelocytes # 0.2T/MM3 Nucleated Red Blood Cells 2 Red Cell Morphology Comment Normal Normal Prothromb Time International Ratio 1.55 (0.76-1.04) Turbidity < 20 (0-20) < 20 (0-20) Sodium Level 144MEQ/L (134-144) 143MEQ/L (134-144) Potassium Level 3.7MEQ/L (3.6-5) 3.9MEQ/L (3.6-5) Chloride Level 114MEQ/L (98-107) 111MEQ/L (98-107) Carbon Dioxide Level 18MEQ/L (22-30) 20MEQ/L (22-30) Anion Gap 12MEQ/L (5-15) 12MEQ/L (5-15) Blood Urea Nitrogen 50.0MG/DL (9-20) 56.0MG/DL (9-20) Creatinine 3.6MG/DL (0.8-1.5) 4.0MG/DL (0.8-1.5) Glomerular Filtration Rate Calc 17 15 BUN/Creatinine Ratio 14RATIO (6-26) 14RATIO (6-26) Glucose Level 126MG/DL (75-110) 139MG/DL (75-110) Calculated Osmolality 292MOSM/KG (261-280) 293MOSM/KG (261-280) Calcium Level 8.0MG/DL (8.4-10.2) 8.2MG/DL (8.4-10.2) Phosphorus Level 6.8MG/DL (2.5-4.5) 7.1MG/DL (2.5-4.5) Magnesium Level 2.3MG/DL (1.6-2.3) Total Bilirubin 0.70MG/DL (0.20-1.30) Icterus Index < 2 (0-7) < 2 (0-7) Aspartate Amino Transf (AST/SGOT) 32U/L (17-59) Alanine Aminotransferase (ALT/SGPT) 61U/L (21-72) Alkaline Phosphatase 235U/L (38-126) Total Protein 5.7G/DL (6.3-8.2) Albumin 2.1G/DL (3.5-5.0) 2.2G/DL (3.5-5.0) Globulin 3.6G/DL (2.4-3.6) Albumin/Globulin Ratio 0.6RATIO (1.1-2.2) Chemistry Specimen Hemolysis < 15 (0-25) < 15 (0-25) Arterial Blood pH 7.440 (7.350-7.450) Arterial Blood Partial Pressure CO2 29MMHG (34-45) Arterial Blood pO2 at Patient Temp 86MMHG (80-100) Arterial Blood HCO3 20MEQ/L (22-26) Arterial Blood Total CO2 20.6MEQ/L (23-27) Arterial Blood Oxygen Saturation 97.0% (95.0-98.0) Arterial Blood Base Excess -3.4MMOL/L (-2.0-2.0) Oxygen Delivery Method (LAB) Bpap, % Blood Gas Oxygen Liter Flow Blood Gas Oxygen Percent Given 25 Blood Gas Vent Rate (0-30) Blood Gas Tidal Volume ML (0-1200) Immature Granulocyte % (Auto) % (0.0-0.5) Neutrophils (%) (Auto) % (33-66) Lymphocytes (%) (Auto) % (23-45) Monocytes (%) (Auto) % (0-9.0) Eosinophils (%) (Auto) % (0-4) Basophils (%) (Auto) % (0-2) Absolute Immature Granulocyte (auto T/MM3 (0.00-0.03) Absolute Neutrophils (auto) T/MM3 (1.8-7.7) Absolute Lymphocytes (auto) T/MM3 (1-4.8) Absolute Monocytes (auto) T/MM3 (0-0.8) Absolute Eosinophils (auto) T/MM3 (0-0.5) Absolute Basophils (auto) T/MM3 (0-0.2) Microbiology Blood cultures X 2 03/08/16 - bacteroides fragilis Blood cultures X 2 03/10/16 - no growth to date CSF - no growth Radiology CT Chest/Abdomen/Pelvis Impression: 1. Large low-attenuation lesions replacing most of the right lobe of the liver. Leading differential considerations are metastatic disease and hepatic abscess. Percutaneous image guided biopsy could be performed for further evaluation. No obvious primary malignancy seen elsewhere. 2. Pleural effusions and hypoinflation. Abdominal Ultrasound 1. Large liver lesions in the right lobe could be due to metastatic disease or hepatic abscess. These are better evaluated on the contrast-enhanced CT. 2. Splenomegaly History of Present Illness Patient was seen and examined in the emergency department after speaking with emergency room physician. Kailash is a very pleasant 60-year-old obese white male who is usually fairly good state of health. He has become increasingly ill over the past 4-6 weeks. He was seen in the office the day prior to admission with extreme fatigue and chest heaviness. EKG performed at that time was negative for ischemia. His blood was drawn including CBC and CMP. His white count resulted at 27,000. His had called the office stating that Kailash was continuing to worsen and was advised to report to the emergency department. He was evaluated at that time and found to have a white count still over 22,000. Very lethargic with a fever over 101 after Tylenol had been administered he was tachycardic weak and dyspneic. Chest x-ray was fairly unremarkable he was admitted for febrile illness with leukocytosis and sepsis. Hospital Course Hospital Problem List Septic Shock -Viral panel positive for Frye virus, likely liver abscess -1/2 blood cx positive for Gram negative rods, repeat blood cx's pending -Other Infectious work up pending-->HIV test, Hepatitis panel, echo for endocarditis, west nile virus, CSF studies -Lactic acid wnls, crp and procal elevated -Abx--> Vanc + Zosyn D2, pharmacy to dose vanc and chk trough -NS IV fluids 150/hr Liver Lesion -Liver abscess (more likely with current clinical picture) vs. metastatic disease -Will need biopsy, will place order but will need to be called in AM on Saturday -Likely reason for transaminitis, work up as above Daily Hospital Summary 03/10/16- covering for Dr. Grimaldo Patient has continuing shaking that is uncontrolled for the last hour, despite giving Tylenol. He asks for something further, perhaps Benadryl. IV Benadryl and Toradol ordered as needed. One of 2 blood cultures are positive today with gram negative rods. Patient is currently on IV Levaquin only. Will discuss this further with Dr. Elmore. Otherwise, continue with scheduled DuoNeb breathing treatments every 6 hours and when necessary. Did review labs. Patient continues to have an elevated white count with increase in bandemia. This morning at 8%, WBC count 17.7 Potassium did decrease to 3.3. Will replace orally. LFTs remain elevated, etiology is unclear. However, this could be a stress response from sepsis. CBC and CMP ordered for tomorrow Will discuss further with attending Dr Elmore. 03/11/2016-covering for Dr. Grimaldo Pt deteriorated yesterday evening as he began having severe rigors with diaphoresis and went into septic shock. Pt received 3.5L NS bolus, abx coverage expanded to include vanc in addition to the Zosyn that was already started earlier, started on levophed and pt was transferred to ICU. Overnight anesthesia was asked to do LP and an art line. Pt did well and this AM pt was able to be weaned of pressors and overall reports feeling much better. CT abdomen shows multiple liver lesions, concern for abscess vs. metastatic disease. Will need FNA tomorrow. Will cont. abx, IV fluids, and monitor closely in ICU. 03/12/16: Patient septic shock secondary to bacteremia ( Bacteroides fragilis). Currently he is on Zosyn and Flagyl awaiting liver biopsy. If he has a liver abscess I will proceed with transesophageal echo to look for evidence of bacterial endocarditis. If malignancy then oncology consult 03/13/16: Pathology report demonstrates no evidence of malignancy. His white blood cell count has decreased as are his liver enzymes. His creatinine was markedly elevated this morning and his urine output was decreased, therefore I gave him multiple IV normal saline boluses with good result. His blood pressure is good he is mildly tachycardic. He continues to have audible wheezes but appears to be responding well to breathing treatments with IPPB. I will order a transesophageal echocardiogram tomorrow to assess for arterial endocarditis which would change the course and duration of a ntibiotic therapy. 03/14/16: Kailash has worsening renal function today. I have given him multiple normal saline 1 L boluses. I am consulting Yehuda Velez of nephrology for assistance. Fractional excretion of sodium will be calculated. I've changed his antibiotics to clindamycin 900 mg every 8 hours to narrow his antibiotics. Bacteria is also more sensitive to clindamycin and there is no renal adjustment necessary. 03/15/16: Discussed with nephrology today. Bumex 2 mg nightly IV. Good urinary output. I will recheck his labs tomorrow and continue him on IV Bumex for now. 03/16/16: Patient continues on 2 mg Bumex IV every 8 hours. He seems to be responding fairly well with better urine output. His metabolic acidosis has worsened, therefore I have started a bicarbonate drip. He continues on clindamycin. No chest pain. He is wheezing in his right upper and lower lung pires, but this appears better than yesterday. He is tolerating BiPAP well. 03/17/16: Covering for Dr. Grimaldo. Urine output better yesterday, but creatinine trended up. Remains on bicarb drip and IV bumex. Will discuss with neprhology if possible. No emergent dialysis need today. 03/18/16: Creatinine continues to increase. UOP slightly increased with increased diuretics per renal instruction last night. Remains on bipap 100% of time. WBC and bandemia increased overnight. Will transfer to [facility] today for specialist care. Problems: (1) Respiratory failure, acute Status: Acute Assessment & Plan: on BIPAP 100% of time now. (2) Metabolic acidosis with normal anion gap and bicarbonate losses Status: Acute Assessment & Plan: improved off bicarb overnight. (3) Bilateral pleural effusion Status: Acute Assessment & Plan: diuresis per renal follow cXR (4) Acute renal failure Status: Acute Assessment & Plan: Creatinine trending up with diuresis, may be expected. increased bumex yesterday afternoon and gave metolozone as well Urine output ok Hold nephrotoxins. Dr. Velez following - spoke to Dr. Wilson covering (5) Septic shock with acute organ dysfunction due to anaerobic bacteria Status: Resolved (6) Liver lesion, right lobe Status: Acute Assessment & Plan: bx done without malignancy likely liver abscess need further workup for etiology of liver abscess (7) Sepsis Status: Acute Assessment & Plan: Blood cultures positive for Bacteroides fragilis, repeat BC NGTD Dr. Ellie Hayes consulted On rocephin and flagyl (8) Coronavirus infection Status: Acute (9) Acute febrile illness Status: Acute (10) Dehydration Status: Acute (11) Night sweats Status: Acute (12) Hyperemia Status: Acute (13) Obesity Status: Chronic (14) History of seasonal allergies Status: Resolved (15) History of TIA (transient ischemic attack) Status: Resolved Code Status Full Code Home Meds Discontinued Reported Medications Aspirin (Aspir 81) 81 Mg Tablet.dr, 81 MG PO PRN 03/08/16 D-Methorphan/PE/Acetaminophen (Tylenol Cold Max Day Caplet) 1 Each Tablet, 2 TAB PO PRN 03/08/16 Fexofenadine HCl (Kandace Allergy) 180 Mg Tablet, 180 MG PO DAILY Y for PRN ORDERS 03/08/16 Dm/P-Ephed/Acetaminoph/Doxylam (Christine-[place] Plus Cold+Flu Pkt) 1 Each Powd.pack , 1 PACKET PO PRN 03/08/16 Multivitamin with Minerals (Men's One Daily) 1 Each Tablet, 1 TAB PO DAILY 03/08/16 Guaifenesin/Dextromethorphan (Mucinex Dm ER 600-30 mg Tablet) 1 Each Tab.er.12h , 1 TAB PO [id number] 03/08/16 Dm/PE/Acetaminophen/Doxylamine (Nighttime Severe Cold-Flu Liq) 355 Ml Liquid, 30 ML PO HS Y for PRN ORDERS 03/08/16 [vit d3-vit c] No Conflict Check, 1 CAP PO BID 03/08/16 Face to Face Encounter I met with patient on the day of dismissal and discussed follow up appointments , medications, and safety plan. Discharge Disposition fair Copies To 1: JOSE MARIA GRIMALDO SHAUNA M DO Mar 18, 2016 12:00 Procedures Procedure Status Date Provider(s) Chest x-ray 2vw frontal&latl Completed 02/09/16 Chylmd pneum dna amp probe Completed 02/09/16 M.pneumon dna amp probe Completed 02/09/16 Resp virus 12-25 targets Completed 02/09/16 Detect agent nos dna amp Completed 02/09/16 Encounters Encounter Location Arrival/Admit Date Discharge/Depart Date Attending Provider Discharged Inpatient [facility] 03/08/16 7:07pm 03/18/16 12:23pm JOSE MARIA GRIMALDO DO [facility] 02/09/16 1:29pm JOSE MARIA GRIMALDO DO
[2016-07-16] MEDS ORDERED: FEXO180T94 PO (16:28)
--- OUTSIDE RECORDS SUMMARY | 2016-07-16 16:31 | XMS REPORT | Continuity of Care Document ---
Author Author [facility] Organization [facility] Address Unknown Phone Unavailable Allergies Medications Problems Procedures Results Encounters ACCT No. Visit Date/Time Discharge Status Pt. Type Provider Facility Loc./Unit Complaint [id number] 05/07/2016 08:20:00 PEN Outpatient CM CHOW [facility] S/P RT [facility]
[2016-07-16] MEDS ORDERED: AMIO200T2 PO (16:34)
[2016-07-16] MEDS ORDERED: MELA3TAB30 PO (16:34)
[2016-07-16] MEDS ORDERED: PHEN-846 PO (16:34)
[2016-07-16] MEDS ORDERED: METO10TA3 PO (16:34)
[2016-07-16] MEDS ORDERED: AMLO5TAB2 PO (16:34)
[2016-07-16] MEDS ORDERED: CHOL100018 PO (16:38)
[2016-07-16] MEDS ORDERED: MULT-447 PO (16:38)
[2016-07-16] MEDS ORDERED: ASCO500T9 PO (16:38)
[2016-07-16 16:57] LABS: HCT - HEMATOCRIT 32.5 % (41-53); HGB - HEMOGLOBIN 10.4 GM/DL (13.5-17.5); MEAN PLATELET VOLUME 9.1 UM3 (9.4-12.4); RED BLOOD COUNT 3.25 M/MM3 (4.50-5.90); WBC - WHITE BLOOD COUNT 12.4 T/MM3 (4.5-11.0)
[2016-07-16 16:59] LABS: BLOOD, URINE NEGATIVE (NEGATIVE); COLOR,URINE AMBER (YELLOW); LEUKOCYTE ESTERASE ,URINE NEGATIVE (NEGATIVE); NITRITE,URINE POSITIVE (NEGATIVE)
[2016-07-16 17:08] LABS: BACTERIA,URINE NONE SEEN (NEGATIVE); RBC,URINE NONE SEEN /HPF (0-3); SQUAMOUS EPITHELIAL CELL,UR 0-5
[2016-07-16 17:10] LABS: ALBUMIN/GLOBULIN RATIO 0.6 RATIO (1.1-2.2); ALT (SGPT) 189 U/L (21-72); ANION GAP 14 MEQ/L (5-15); AST (SGOT) 254 U/L (17-59); BUN/CREATININE RATIO 14 RATIO (6-26); CALCIUM 9.6 MG/DL (8.4-10.2); CHLORIDE 102 MEQ/L (98-107); CO2 - CARBON DIOXIDE 26 MEQ/L (22-30); CREATININE 0.7 MG/DL (0.8-1.5); GLOMERULAR FILTRATION RATE 114; GLUCOSE 109 MG/DL (75-110); LIPASE 26 U/L (23-300); SODIUM 142 MEQ/L (134-144); TOTAL PROTEIN 7.7 G/DL (6.3-8.2)
[2016-07-16 17:16] LABS: ALKALINE PHOSPHATASE 1623 U/L (38-126)
[2016-07-16 17:19] LABS: BAND NEUTROPHILS # 0.5 T/MM3; BASOPHILS # (MANUAL) 0.2 T/MM3 (0-0.2); EOSINOPHILS # (MANUAL) 0.2 T/MM3 (0-0.5); LYMPHOCYTES # (MANUAL) 1.9 T/MM3 (1-4.8); MONOCYTES # (MANUAL) 0.1 T/MM3 (0-0.8); NEUTROPHILS #(MANUAL)-ABSOLUTE 9.4 T/MM3 (1.8-7.7); NUCLEATED RED BLOOD CELLS 2; TOTAL CELLS COUNTED 100 %
[2016-07-16 17:21] LABS: POLYCHROMASIA 1+
--- NOTE | 2016-07-16 17:21 | ERPDOC ---
Departure Disposition Decision Date: July 16, 2016 Disposition Decision Time: 18:30 Disposition: 02 TO [facility] Impression Impression Impression: Primary Impression: Liver lesion Severity: Mild Condition: Improved Seen By: Physician only Referrals: JOSE MARIA GRIMALDO DO (Family) Problems/Meds/Labs Reviewed?: Yes Medications reviewed and manag: Yes Follow up care ordered?: Yes Mental Status: Alert, Oriented HPI - Abdominal Pain General Chief Complaint: Male Urogenital Problems Stated Complaint: URINARY TRACT INFECTION Time Seen by Provider: 16:14 Source: patient, family History/Exam Limitations: no limitations HPI - Abdominal Pain Initial Comments 60-year-old male presents to the emergency department with a chief complaint of noticing a yellow coloration to his skin. Patient states that he noticed a slight irritated sensation with urination on and had a urinalysis checked which showed elevated urobilinogen. On Saturday the patient noted that his skin began to turn yellow. This has been persistent in nature since onset. Patient does note a bit of mild suprapubic abdominal pressure without radiation. He denies any other complaints or associated symptoms. Patient called his primary care physician's (Dr. Grimaldo's) office and was referred to the emergency Department due to the yellow coloring of his skin. Patient does have a history of liver abscess in the past with similar symptoms. Patient has noted a gradual onset of symptoms which have been persistent in nature since onset. Occurred At: home Onset: Gradual Allergies: Coded Allergies: No Known Drug Allergies (Verified Allergy, Unknown, 07/16/16) Past History Patient Medical History Problem List Updates: Liver Abscess, Acute Renal Failure Patient Surgical History Chest tube insertion, Hernia Repair, Abscess Drains from Liver Past Medical History Pt denies signifigant PMH Metabolic: other ENMT: allergies Neurological: TIA Family History Family PMH: FOUND: hypertension Vaccines Hx Influenza Vaccination: Yes (JAN 2016) Hx Pneumococcal Vaccination: No Social History Smoking Status: Never smoker Does patient use chewing tobac: No Second Hand Exposure: No Substance Use Type: does not use Alcohol Intake: none Last Drink: unknown Marital Status: Sexuality: female partner Housing: house Household Members: spouse Service: No Current Occupational Status: employed Review of Systems Constitutional Constitutional: DENIES: chills, fever Eyes General: DENIES: erythema, exudate Vision: DENIES: acuity, blurring ENMT Ears: DENIES: drainage, pain Balance: DENIES: ataxia, falling to one side Nose: DENIES: nosebleeds, pain Mouth/Throat: DENIES: painful swallowing, sore throat Teeth: DENIES: pain Jaw: DENIES: pain Cardiovascular Cardiac: DENIES: chest pain, dyspnea on exertion Rhythm/Rate: DENIES: irregular beat, palpitations Vascular: DENIES: pedal edema, unilateral swelling Pulmonary Respiratory: DENIES: cough, dyspnea, pleuritic chest pain, sputum GI Upper Abdomen: DENIES: nausea, pain, vomiting Lower Abdomen: pain, DENIES: diarrhea General: burning, DENIES: anuria Musculoskeletal General: DENIES: joint pain, tenderness Integumentary Skin: DENIES: itching, rash Neurological General: DENIES: headache, numbness Psychiatric Psychiatric: DENIES: emotional instability, suicidal ideation/attempt Endocrine Endocrine: DENIES: polydipsia, polyphagia Hematologic/Lymphatic Hematologic/Lymphatic: DENIES: frequent nosebleeds, lymphadenopathy Allergic/Immunological Allergic/Immunoligical: DENIES: allergic reactions, hives Physical Exam General General Nourishment: well nourished, well developed, appears stated age, no acute distress, adult General Body Habitus: well groomed Vitals and Pain First Documented Vital Signs Date Time Temp Pulse Resp B/P Pulse Ox O2 Delivery O2 Flow Rate FiO2 07/16/16 15:01 98.9 94 19 128/91 98 Room Air Weight: Kilograms: 93.000 Height (feet): 6 Height (inches): 1.00 Triage Pain Scale: RN VS reviewed by Provider: Yes Normal Exams: Head: Normocephalic w/o trauma Eyes: Pupils are PERRLA w/ EOMI, irritation, or foreign bodies noted ENMT: No facial trauma, nasal exudates, pharyngeal erythema, or exudates are noted Dental: No fractured, loose, or missing teeth noted Neck: Full range of motion, without adenopathy, JVD, bruits or thyromegaly Chest/Resp: Clear all pires, with good airflow, and symmetry bilaterally CV: Regular rate and rhythm, without murmur or gallop, Pulses 2+ all extremities, capillary refill, <2 seconds all ext., no pedal edema noted Abdomen: Bowel sounds positive, soft, non-tender, non-distended, no hepatosplenomegaly, masses or bruits noted Lymphatic: No lymphadenopathy, or lymphedema noted Musculoskeletal: No tenderness, or deformity noted, good range of motion, all extremities Integumentary: No rashes, hives, or bruising noted, hair and nails, without abnormality Neurologic: Patient is alert, and oriented, cranial nerves, motor/sensory/ cerebellar, exams w/o gross deficits, to observation Psychiatric: Patient exhibits, appropriate attention, emotion and affect ENMT (brief) Comments + muddy sclerae Integumentary (brief) Comments + Jaundice Differential Diagnoses Considering: Bowel Obstruction, Cholecystitis, UTI, Other (Liver Abscess. ) Progress Results/Orders Orders Procedure Category Date Status Time Cbc W/Auto LAB 07/16/16 Complete Diff-Reflex Manual Cmp - Comprehensive LAB 07/16/16 Complete Metabolic Lipase LAB 07/16/16 Complete UA, LAB 07/16/16 Complete Dip&Micro(Complete) & 16:33 Ct Abd/Pelvis W/O CT 07/16/16 Taken Contrast 16:59 Urine Culture DYLAN 07/16/16 In Process 17:11 Us Gallbladder US 07/16/16 Taken 17:20 Blood Culture DYLAN 07/16/16 In Process 18:42 Procalcitonin LAB 07/16/16 Complete 18:42 Lactate - Lactic Acid LAB 07/16/16 Complete Lactate - Lactic Acid LAB 07/16/16 Logged 23:12 [address] In Facility: ED ADM 07/16/16 Transmitted 18:44 Normal Saline (Ns) PHA 07/16/16 Complete 18:45 Ertapenem (Invanz) PHA 07/16/16 Complete 18:45 Metronidazole Ivpb PHA 07/16/16 Complete (Flagyl I.V.) 18:45 Potassium Chloride PHA 07/16/16 Complete (Kdur) 19:30 Normal Saline (Normal PHA 07/16/16 In Process Saline Iv) 19:30 Lab Results Laboratory Tests Test 07/16/16 16:33 07/16/16 16:48 07/16/16 18:57 07/16/16 19:04 Urine Collection Type Cleancatch-midstream Urine Color Vivian Urine Turbidity Clear Urine pH 5.5 Urine Specific [place] 1.020 Urine Protein 1+ Urine Glucose (UA) Inconcl due to color Urine Ketones Inconcl due to color Urine Blood Negative Urine Nitrite Positive Urine Bilirubin 3+ Urine Urobilinogen 4.0EU/DL Urine Leukocyte Esterase Negative Urine RBC None seen/HPF Urine WBC 1-3/HPF Urine Squamous Epithelial Cells 0-5 Urine Bacteria None seen Urine Hyaline Casts 1-3/LPF Urine Culture Indicated Cult reflexed &setup White Blood Count 12.4T/MM3 Red Blood Count 3.25M/MM3 Hemoglobin 10.4GM/DL Hematocrit 32.5% Mean Corpuscular Volume 100.0UM3 Mean Corpuscular Hemoglobin 32.0UUG Mean Corpuscular Hemoglobin Concent 32.0GM/DL RDW Standard Deviation 50.8FL Platelet Count 284T/MM3 Mean Platelet Volume 9.1UM3 Immature Granulocyte % (Auto) % Neutrophils (%) (Auto) % Lymphocytes (%) (Auto) % Monocytes (%) (Auto) % Eosinophils (%) (Auto) % Basophils (%) (Auto) % Absolute Immature Granulocyte (auto T/MM3 Absolute Neutrophils (auto) T/MM3 Absolute Lymphocytes (auto) T/MM3 Absolute Monocytes (auto) T/MM3 Absolute Eosinophils (auto) T/MM3 Absolute Basophils (auto) T/MM3 Neutrophils % (Manual) 76.0% Band Neutrophils % 4.0% Lymphocytes % (Manual) 15.0% Monocytes % (Manual) 1.0% Eosinophils % (Manual) 2.0% Basophils % (Manual) 2.0% Absolute Neutrophils (Manual) 9.4T/MM3 Band Neutrophils # 0.5T/MM3 Lymphocytes # (Manual) 1.9T/MM3 Monocytes # (Manual) 0.1T/MM3 Eosinophils # (Manual) 0.2T/MM3 Basophils # (Manual) 0.2T/MM3 Nucleated Red Blood Cells 2 Polychromasia 1+ Red Cell Morphology Comment Abnormal Turbidity < 20 Sodium Level 142MEQ/L Potassium Level 3.0MEQ/L Chloride Level 102MEQ/L Carbon Dioxide Level 26MEQ/L Anion Gap 14MEQ/L Blood Urea Nitrogen 10.0MG/DL Creatinine 0.7MG/DL Glomerular Filtration Rate Calc 114 BUN/Creatinine Ratio 14RATIO Glucose Level 109MG/DL Calculated Osmolality 273MOSM/KG Calcium Level 9.6MG/DL Total Bilirubin 8.10MG/DL Icterus Index 4 Aspartate Amino Transf (AST/SGOT) 254U/L Alanine Aminotransferase (ALT/SGPT) 189U/L Alkaline Phosphatase 1623U/L Total Protein 7.7G/DL Albumin 3.0G/DL Globulin 4.7G/DL Albumin/Globulin Ratio 0.6RATIO Lipase 26U/L Chemistry Specimen Hemolysis < 15 Procalcitonin 0.69NG/ML Plasma Lactate 1.6MMOL/L Progress Progress Labs / imaging were discussed in detail with the patient and questions are answered. Patient is given IV hydration. Patient is started on Invanz and Flagyl intravenously after blood cultures and lactic acid are obtained. Sepsis was considered at [address] Scan was reviewed and potential recurrence of liver masses are noted. Patient declines offered analgesic pain medication. Patient is discussed with his primary care physician and will be admitted to the CCU for further evaluation and treatment. Pick line team was contacted and will come to the emergency department for placement of PICC line. Patient is admitted to the service of Dr. Grimaldo in improved condition. He is in agreement with the current plan of management. Dr. Grimaldo is in agreement with the current plan of management. No further orders. Patient was given 40 mEq of potassium by mouth 1 in the emergency department. Patient was not hypotensive and did not have a lactic acid greater than 4 therefore did not require 30 mL/kg of normal saline replacement. CT CT : CT: Abd/Pelvis no contrast Interpretation: Abnormal (multiple indeterminate low-density hepatic masses again identified and may represent persistent/recurrent hepatic infection or neoplasm. Chronic trace right pleural effusion with pleural thickening and scarring.), Faxed Report Ultrasound US : Ultrasound: Gallbladder US Interpretation: Abnormal (Multiple hepatic lesions with a large one measuring 8 cm. Follow-up MRI recommended.), Faxed Report DERIK MURCIA DO July 16, 2016 17:21
--- NOTE | 2016-07-16 17:23 | NUR ---
IMAGING PT TO IMAGING VIA CART AT THIS TIME.
--- NOTE | 2016-07-16 17:36 | NUR ---
IMAGING PT RETURN TO ROOM AT THIS TIME.
--- NOTE | 2016-07-16 17:40 | NUR ---
SONO AT BEDSIDE
[2016-07-16] MEDS ORDERED: NORMAL SALINE 500 ML IV ONE (18:45)
[2016-07-16] MEDS ORDERED: ERTAPENEM 1 G in NORMAL SALINE 100 ML IV ONE (18:45)
[2016-07-16] MEDS ORDERED: METRONIDAZOLE IVPB 500 MG in NORMAL SALINE 100 ML IV ONE (18:45)
--- OUTSIDE RECORDS SUMMARY | 2016-07-16 19:02 | XMS REPORT | Continuity of Care Document ---
Author Author [facility] Organization [facility] Address Unknown Phone Unavailable Allergies Medications Problems Procedures Results Encounters ACCT No. Visit Date/Time Discharge Status Pt. Type Provider Facility Loc./Unit Complaint [id number] 05/07/2016 08:20:00 PEN Outpatient CM CHOW [facility] S/P RT [facility]
[2016-07-16] MEDS ORDERED: NORMAL SALINE 1,000 ML IV ONE (19:30)
[2016-07-16] MEDS ORDERED: POTASSIUM CHLORIDE 20 MEQ TABLET PO ONE (19:30)
--- NOTE | 2016-07-16 19:45 | NUR ---
PICC LINE TECH TEE RN PICC LINE TECH IN IN PROCESS OF INSERTING THE PICC LINE
--- NOTE | 2016-07-16 20:15 | NUR ---
TRANSFER TO ICU VIA CART
--- NOTE | 2016-07-16 20:15 | NUR ---
ADMIT TO CCU 2 AT THIS TIME FROM ED, IN NO ACUTE DISTRESS, WILL CONTINUE TO MONITOR.
--- NOTE | 2016-07-16 21:56 | HPPDOC ---
HPI - Adult Date DATE: 07/16/16 TIME: 21:36 General Chief Complaint: Jaundice History of Present Illness Patient admitted through the ER with new onset jaundice increasing over the last few days. 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 He also had ARF which resolved without dialysis. His PICC line was removed and Invanz DCd with Dr. Geiger on . CT from the ER once again demonstrated hepatic abscesses. Past Medical History Past Medical History Patient's Medical History: (1) History of TIA (transient ischemic attack) (2) Coronavirus infection (3) Liver lesion, right lobe (4) Obesity (5) Acute renal failure (6) Respiratory failure, acute (7) Hypertension (8) Atrial fibrillation Surgical History Patient's Surgical History: Chest tube insertion, Hernia Repair, Abscess Drains from Liver, R-knee orthoscopic surgery, left foot-multiple operations, R-TKA, Umbillical hernia Current Medications Home Meds Reported Medications Multivitamin with Minerals (Men's One Daily) 1 Each Tablet, 1 TAB PO DAILY 07/16/16 Ascorbic Acid (Vitamin C) 500 Mg Tablet, 500 MG PO DAILY 07/16/16 Cholecalciferol (Vitamin D3) 1,000 Unit Tablet, 1000 UNIT PO DAILY 07/16/16 Amlodipine Besylate (Amlodipine Besylate) 5 Mg Tablet, 5 MG PO HS 07/16/16 Metoclopramide HCl (Metoclopramide HCl) 10 Mg Tablet, 10 MG PO QID Y for PRN ORDERS 07/16/16 Amiodarone HCl (Amiodarone HCl) 200 Mg Tablet, 200 MG PO DAILY 07/16/16 Phenazopyridine HCl (Phenazopyridine HCl) 100 Mg Tablet, 200 MG PO TID Y for PRN ORDERS 07/16/16 Melatonin (Melatonin) Unknown Strength Tablet, PO HS 07/16/16 Fexofenadine HCl (Kandace Allergy) 180 Mg Tablet, 180 MG PO DAILY Y for ALLERY SYMPTOMS 07/16/16 Allergies: Coded Allergies: No Known Drug Allergies (Verified Allergy, Unknown, 07/16/16) Family History Family History: Father--Lung CA, CAD Social History Smoking Status: Never smoker Does patient use chewing tobac: No Second Hand Exposure: No Substance Use Type: does not use Alcohol Intake: none Last Drink: unknown Marital Status: Sexuality: female partner Housing: house Household Members: spouse Service: No Current Occupational Status: employed Occupational Hazard: No Advance Directives: No DPOA for Healthcare Only Review of Systems Constitutional: REPORTS: fatigue, weakness, weight loss Eyes Comments icteric Cardiovascular dyspnea on exertion, DENIES: chest pain Rhythm/Rate: tachycardia Pulmonary Respiratory: DENIES: cough, pleuritic chest pain, sputum GI Upper Abdomen: pain, DENIES: dysphagia, food intolerances Lower Abdomen: DENIES: blood in stool, luis-colored stools, diarrhea, melena General: dysuria, frequency, urgency Integumentary Skin: color change Neurological General: weakness Psychiatric Psychiatric: anxiety, depression Endocrine heat/cold intolerance, DENIES: polydipsia, polyphagia Hematologic/Lymphatic anemia, easy bruising, DENIES: frequent nosebleeds, lymphadenopathy Allergic/Immunological DENIES: allergic reactions, hives, sneezing All Other Systems All Other Systems: Reviewed (remainder of 10-point ROS Neg.) Physical Exam General General Nourishment: adult General Body Habitus: disheveled Vital Signs Vital Signs Date Time Temp Pulse Resp B/P Pulse Ox O2 Delivery O2 Flow Rate FiO2 07/16/16 20:45 98.4 73 28 114/72 100 Room Air Height (Feet): 6 Height (Inches): 1.00 Telemetry Rhythm: Sinus Tachycardia Eyes Brief: FOUND: EOMI, PERRL, scleral icterus Neck Brief: NOT FOUND: JVD, adenopathy, carotid bruits, thyromegaly Respiratory Brief: FOUND: clear all pires, equal bilaterally, NOT FOUND: rales , wheezes Cardiovascular (brief) Cardiac Brief: FOUND: pedal edema, regular rhythm, NOT FOUND: regular rate Abdomen (brief) Abdominal Brief: FOUND: BS normo active x4, hepatosplenomegaly, soft, tender, NOT FOUND: distended Lymphatic (brief) Lymphatic Brief: NOT FOUND: adenopathy, lymphedema Musculoskeletal (brief) Musculoskeletal Brief: NOT FOUND: deformity, spasm, tenderness Integumentary (brief) Integumentary Brief: FOUND: warm Comments jaundice Integumentary General: FOUND: cool Color: FOUND: jaundice Neurologic (brief) Neurological Brief: FOUND: cranial 2-12 intact, motor, sensory, NOT FOUND: facial droop, ptosis Neurologic RN Documented GCS Eye Opening: Verbal: Motor: Total: Psychiatric (brief) FOUND: alert, attentive, oriented Laboratory Laboratory Tests Test 07/16/16 16:33 07/16/16 16:48 07/16/16 18:57 07/16/16 19:04 Urine Collection Type Cleancatch-midstream Urine Color Vivian Urine Turbidity Clear Urine pH 5.5 Urine Specific [place] 1.020 Urine Protein 1+ Urine Glucose (UA) Inconcl due to color Urine Ketones Inconcl due to color Urine Blood Negative Urine Nitrite Positive Urine Bilirubin 3+ Urine Urobilinogen 4.0EU/DL Urine Leukocyte Esterase Negative Urine RBC None seen/HPF Urine WBC 1-3/HPF Urine Squamous Epithelial Cells 0-5 Urine Bacteria None seen Urine Hyaline Casts 1-3/LPF Urine Culture Indicated Cult reflexed &setup White Blood Count 12.4T/MM3 Red Blood Count 3.25M/MM3 Hemoglobin 10.4GM/DL Hematocrit 32.5% Mean Corpuscular Volume 100.0UM3 Mean Corpuscular Hemoglobin 32.0UUG Mean Corpuscular Hemoglobin Concent 32.0GM/DL RDW Standard Deviation 50.8FL Platelet Count 284T/MM3 Mean Platelet Volume 9.1UM3 Immature Granulocyte % (Auto) % Neutrophils (%) (Auto) % Lymphocytes (%) (Auto) % Monocytes (%) (Auto) % Eosinophils (%) (Auto) % Basophils (%) (Auto) % Absolute Immature Granulocyte (auto T/MM3 Absolute Neutrophils (auto) T/MM3 Absolute Lymphocytes (auto) T/MM3 Absolute Monocytes (auto) T/MM3 Absolute Eosinophils (auto) T/MM3 Absolute Basophils (auto) T/MM3 Neutrophils % (Manual) 76.0% Band Neutrophils % 4.0% Lymphocytes % (Manual) 15.0% Monocytes % (Manual) 1.0% Eosinophils % (Manual) 2.0% Basophils % (Manual) 2.0% Absolute Neutrophils (Manual) 9.4T/MM3 Band Neutrophils # 0.5T/MM3 Lymphocytes # (Manual) 1.9T/MM3 Monocytes # (Manual) 0.1T/MM3 Eosinophils # (Manual) 0.2T/MM3 Basophils # (Manual) 0.2T/MM3 Nucleated Red Blood Cells 2 Polychromasia 1+ Red Cell Morphology Comment Abnormal Turbidity < 20 Sodium Level 142MEQ/L Potassium Level 3.0MEQ/L Chloride Level 102MEQ/L Carbon Dioxide Level 26MEQ/L Anion Gap 14MEQ/L Blood Urea Nitrogen 10.0MG/DL Creatinine 0.7MG/DL Glomerular Filtration Rate Calc 114 BUN/Creatinine Ratio 14RATIO Glucose Level 109MG/DL Calculated Osmolality 273MOSM/KG Calcium Level 9.6MG/DL Total Bilirubin 8.10MG/DL Icterus Index 4 Aspartate Amino Transf (AST/SGOT) 254U/L Alanine Aminotransferase (ALT/SGPT) 189U/L Alkaline Phosphatase 1623U/L Total Protein 7.7G/DL Albumin 3.0G/DL Globulin 4.7G/DL Albumin/Globulin Ratio 0.6RATIO Lipase 26U/L Chemistry Specimen Hemolysis < 15 Procalcitonin 0.69NG/ML Plasma Lactate 1.6MMOL/L Concerns For Adverse Events Patient is jaundiced, weak, lethargic, with dysuria and a recent history of B. frag hepatic abscesses. He also has joint replacements. Sepsis Diagnostic Criteria General Variables: FOUND Heart Rate >90/min, FOUND Tachypnea Organ Dysfunction Variables: FOUND Hyperbilirubinemia Assessment & Plan Problems: (1) Elevated liver enzymes Status: Acute (2) Acute cholestatic jaundice syndrome Status: Acute (3) Liver lesion, right lobe Status: Acute (4) Hypertension Status: Chronic Qualifiers: Hypertension type: essential hypertension Qualified Codes: I10 - Essential (primary) hypertension (5) Atrial fibrillation Qualifiers: Atrial fibrillation type: paroxysmal Qualified Codes: I48.0 - Paroxysmal atrial fibrillation (6) History of TIA (transient ischemic attack) Status: Resolved DVT Prophylaxis: SCD'S, KAYLYN Hose Code Status Full Code Hospital Course Summary Disclaimer The hospital course summary below is not to be considered part of the above Progress Note. JOSE MARIA GRIMALDO DO July 16, 2016 21:40
[2016-07-16] MEDS: METRONIDAZOLE IVPB 500 MG in NORMAL SALINE 100 ML IV SCH (22:00)
[2016-07-17] VITALS (24 sets, daily range): BP systolic 105–147; BP diastolic 54–94; PULSE 60–110; RESP 14–44; TEMP 96.9–97.8; O2SAT 95–100
[2016-07-17] MEDS: METRONIDAZOLE IVPB 500 MG in NORMAL SALINE 100 ML IV SCH ×3 (04:50→22:46)
[2016-07-17 05:14] LABS: BASOPHILS # (AUTO) 0.1 T/MM3 (0-0.2); BASOPHILS % (AUTO) 0.5 % (0-2); EOSINOPHILS # (AUTO) 0.6 T/MM3 (0-0.5); EOSINOPHILS % (AUTO) 5.7 % (0-4); HCT - HEMATOCRIT 28.5 % (41-53); IMMATURE GRANULOCYTE # (AUTO) 0.17 T/MM3 (0.00-0.03); IMMATURE GRANULOCYTE % (AUTO) 1.5 % (0.0-0.5); LYMPHOCYTES # (AUTO) 1.2 T/MM3 (1-4.8); LYMPHOCYTES % (AUTO) 11.2 % (23-45); MEAN CORPUSCULAR HGB 31.8 UUG (26-34); MEAN CORPUSCULAR HGB CONC(MCHC 31.6 GM/DL (31-37); MEAN CORPUSCULAR VOLUME 100.7 UM3 (80-100); MEAN PLATELET VOLUME 9.1 UM3 (9.4-12.4); MONOCYTES % (AUTO) 8.7 % (0-9.0); NEUTROPHILS #(AUTO)-ABSOLUTE 7.9 T/MM3 (1.8-7.7); NEUTROPHILS % (AUTO) 72.4 % (33-66); RED BLOOD COUNT 2.83 M/MM3 (4.50-5.90)
[2016-07-17 05:22] LABS: LACTATE - LACTIC ACID 0.9 MMOL/L (0.6-2.2)
[2016-07-17 05:23] LABS: ALBUMIN 2.3 G/DL (3.5-5.0); ALBUMIN/GLOBULIN RATIO 0.6 RATIO (1.1-2.2); ALKALINE PHOSPHATASE 1393 U/L (38-126); ALT (SGPT) 159 U/L (21-72); ANION GAP 8 MEQ/L (5-15); AST (SGOT) 202 U/L (17-59); BUN/CREATININE RATIO 13 RATIO (6-26); CALCIUM 8.9 MG/DL (8.4-10.2); CHLORIDE 106 MEQ/L (98-107); CO2 - CARBON DIOXIDE 25 MEQ/L (22-30); CREATININE 0.6 MG/DL (0.8-1.5); GLOMERULAR FILTRATION RATE 137; GLUCOSE 93 MG/DL (75-110); POTASSIUM 3.2 MEQ/L (3.6-5); SODIUM 139 MEQ/L (134-144); TOTAL PROTEIN 6.2 G/DL (6.3-8.2)
[2016-07-17] MEDS: NORMAL SALINE 1,000 ML IV SCH ×3 (05:45→22:47)
--- NOTE | 2016-07-17 08:00 | NUR ---
STATUS Patient sleeping at present.
--- NOTE | 2016-07-17 08:30 | NUR ---
STATUS Awake and alert. Jokes w/ staff. c/o some diffuse abd pain w/ palpation. Appetite good.
--- NOTE | 2016-07-17 08:32 | DI ---
Indication: ITS.REASON: jaundice PROCEDURE: CT ABD/PELVIS W/O CONTRAST: Encounter: Initial Comparison: CT chest, abdomen and pelvis dated March 10, 2016 Technique: Axial CT images were performed through the abdomen and pelvis without intravenous contrast. Coronal and sagittal two-dimensional reformats. Automated Exposure Control and Iterative Reconstruction dose reducing techniques were utilized. Findings: Fibrotic changes in both lung bases. Heterogeneous low-attenuation foci in the liver appear improved from the comparison study. There is a large lesion again seen near the gallbladder fossa measuring over 6.4 cm in diameter. Evaluation is limited without contrast. There are smaller lesions in the superior right hepatic lobe which are apparently smaller than the contrast-enhanced comparison study. There is also a nodular area of omental thickening or implants seen inferior to the right hepatic lobe measuring up to 3.5 cm in diameter. The gallbladder is grossly unchanged. The spleen appears normal. The pancreas and adrenal glands are within normal limits. The kidneys are normal. No abdominal or pelvic lymphadenopathy. Bladder is decompressed. No free fluid. No evidence of a bowel obstruction. There is bowel wall thickening and fatty infiltration in the small bowel within the pelvis which is similar to the prior exam. Bone windows are unchanged. Impression: Interval improvement in the low-attenuation hepatic lesions consistent with some type of treatment response. Recommend correlation with patient's medical history. There are significant liver lesions remaining could be infectious or metastatic with an omental implant or nodule. No evidence of acute bowel obstruction. Chronic appearing bowel inflammation and could be due to inflammatory bowel disease or enteritis. There is a preliminary report by [facility]. .
--- NOTE | 2016-07-17 08:34 | DI ---
Indication: ITS.REASON: picc placement PROCEDURE: CHEST POST PROCEDURE 1 VIEW: Encounter: Initial Comparison: March 17, 2016 Findings: Linear areas of atelectasis or scarring in both lung bases. Right PICC line in place with the tip projecting over the cavoatrial junction. No pneumothorax. Trace right pleural effusion. Heart size and mediastinal contours are stable. Impression: Right PICC line tip projects in appropriate position. There is a preliminary report by [facility]. .
--- NOTE | 2016-07-17 08:38 | DI ---
Indication: ITS.REASON: elevated total bilirubin PROCEDURE: US GALLBLADDER: Encounter: Initial Comparison: CT abdomen and pelvis from the same date Technique: Grayscale and color Doppler sonographic imaging of the right upper quadrant of the abdomen was performed. Findings: Hepatic parenchyma is heterogeneous with multiple hypoechoic masses present. Some of these demonstrate the "target" sign including a lesion in the right lobe measuring up to 3.3 cm in diameter. Others show internal vascular flow on the color Doppler imaging. Large lesion near the gallbladder fossa measuring 5.1 cm in diameter. The gallbladder contains echogenic sludge without obvious stone disease. The gallbladder is surrounded by an could be infiltrated by the adjacent hepatic masses. No shadowing gallstones or obvious gallbladder wall thickening. Both the intra and extrahepatic biliary system are of normal caliber with the common duct measuring 3 mm in dimension. Pancreas could not be seen due to shadowing bowel gas. The right kidney is present without collecting system dilatation. The right kidney measures 10.9 cm in length. Impression: 1. Abnormal gallbladder which is surrounded by hepatic mass lesions and could be infiltrated or involved by tumor mass. No obvious cholelithiasis or definite acute cholecystitis. 2. Heterogeneous liver better evaluated on CT is likely due to metastatic disease. Recommend clinical and laboratory correlation. There is a preliminary report by [facility]. .
[2016-07-17] MEDS: ERTAPENEM 1 G in NORMAL SALINE 100 ML IV SCH (08:39)
[2016-07-17 08:47] LABS: INR 1.45 (0.77-1.03); PROTHROMBIN TIME 15.9 SEC (9.48-12.52)
--- NOTE | 2016-07-17 10:26 | NUR ---
SHEKHAR CORRIGAN VISITED PT. CM EXPLAINED ROLE AND PROVIDED CONTACT INFORMATION. PT PLANS TO RETURN HOME POST HOSPITAL STAY. PT BELIEVES HE HAS HOME HEALTH IN PLACE. PT IS UNABLE TO REMEMBER THE NAME CM DID PLACE A CALL TO PT SPOUSE FOR THAT INFORMATION PT WOULD LIKE TO CONTINUE WITH THEM POST HOSPITAL STAY. PT IS AWARE TO CONTACT CM IF NEEDS ARISE.
--- NOTE | 2016-07-17 10:38 | NUR ---
SHEKHAR CM RECEIVED RETURN CALL FROM SPOUSE DIANNA WHO STATES THAT PT IS USING [facility].
--- NOTE | 2016-07-17 11:00 | NUR ---
ELIM Up to BSC. Voided and had large BM. Up w/ one assist and gait belt. Weak but steady on his feet.
--- NOTE | 2016-07-17 16:45 | NUR ---
TRANSFER Patient transferred to Rm. 139 per orders. at bedside and aware of transfer.
--- NOTE | 2016-07-17 21:13 | PNPDOC ---
Subjective Date DATE: 07/17/16 TIME: 21:05 Subjective Patient seen and examined in ICU. Bilirubin improved. Mild/moderate abdominal pain. jaundiced. Denies chest pain, SOB. Objective Vital Signs Vital signs Vital Signs 07/17/16 07/17/16 07/17/16 07/17/16 10:00 11:00 12:00 12:00 Pulse 64 60 78 84 Resp 21 18 32 B/P 123/78 122/73 130/94 Pulse Ox 100 95 100 O2 Delivery Room Air Room Air Room Air 07/17/16 07/17/16 07/17/16 07/17/16 13:00 14:00 15:00 16:00 Pulse 72 62 66 65 Resp 15 18 24 14 B/P 119/82 115/72 124/68 130/80 Pulse Ox 100 100 100 100 O2 Delivery Room Air Room Air Room Air Room Air 07/17/16 07/17/16 07/17/16 07/17/16 16:49 16:54 17:00 20:09 Temp 96.9 97.8 Pulse 72 72 78 69 Resp 18 18 18 B/P 135/75 130/79 Pulse Ox 99 99 O2 Delivery Room Air Room Air Room Air Telemetry Rhythm: Sinus Rhythm Height (Feet): 6 Height (Inches): 1.00 Weight (Kilograms): 89.600 General General Appearance: Alert, Orientated x 3, Cooperative, No Acute Distress Eyes (Brief) Eyes: FOUND: EOMI, PERRL, scleral icterus Neck (Brief) Neck Brief: NOT FOUND: JVD, adenopathy, carotid bruits, thyromegaly Respiratory (Brief) Respiratory Brief: FOUND: clear all pires, equal bilaterally, NOT FOUND: rales , wheezes Cardiovascular (Brief) Cardiac: FOUND: murmur, regular rate, regular rhythm Abdomen (Brief) Abdominal: FOUND: BS normo active x4, soft, tender Extremities (Brief) Extremity : Side: Bilateral Extremity Finding: FOUND: edema Comments decreased muscle mass Lymphatic (Brief) Lymphatic Brief: NOT FOUND: adenopathy, lymphedema Musculoskeletal (Brief) Musculoskeletal Brief: NOT FOUND: deformity, loss of motion, spasm, tenderness Integumentary (Brief) Integumentary: FOUND: dry, warm Comments Jaundiced Neurologic (Brief) Neurologic: FOUND: cranial 2-12 intact, motor, sensory Psychiatric (Brief) Psychiatric: FOUND: alert, attentive, normal affect, oriented Comments Depressed Laboratory Laboratory Laboratory Tests 07/17/16 04:48 Laboratory Tests 07/17/16 04:48 Microbiology Microbiology Microbiology Date/Time Source Procedure Growth Status 07/16/16 19:04 Peripheral/Iv Start Blood Culture - Preliminary NO GROWTH AFTER 24 HOURS Resulted 07/16/16 18:57 Peripheral/Iv Start Blood Culture - Preliminary NO GROWTH AFTER 24 HOURS Resulted 07/16/16 17:11 Urine, Clean Catch-Midstream Urine Culture - Preliminary CULTURE INITIATED - RESULTS PENDING Resulted Sepsis Diagnostic Criteria Sepsis Confirmed/Suspected Infection: Yes SIRS Criteria: Pulse >= 90 beats/min, WBC >=12,000 or <=4,000 Severe Sepsis Bilirubin>2mg/dL Assessment & Plan Problems: (1) Elevated liver enzymes Status: Acute (2) Acute cholestatic jaundice syndrome Status: Acute Assessment & Plan: Bilirubin = 8.1 (3) Liver lesion, right lobe Status: Acute (4) Hypertension Status: Chronic Qualifiers: Hypertension type: essential hypertension Qualified Codes: I10 - Essential (primary) hypertension (5) Atrial fibrillation Qualifiers: Atrial fibrillation type: paroxysmal Qualified Codes: I48.0 - Paroxysmal atrial fibrillation (6) History of TIA (transient ischemic attack) Status: Resolved Code Status Full Code Hospital Course Summary Disclaimer The hospital course summary below is not to be considered part of the above Progress Note. Hospital Course Summary Patient is improving. I will transfer to medical floor. JOSE MARIA GRIMALDO DO July 17, 2016 21:09
[2016-07-18 00:16] VITALS: BP 130/69; PULSE 71; RESP 18; TEMP 97.7; O2SAT 99
[2016-07-18 04:01] VITALS: BP 121/67; PULSE 69; RESP 14; TEMP 97.6; O2SAT 98
--- NOTE | 2016-07-18 05:27 | NUR ---
SHIFT SUMMARY: PT IS A&OX3, PLEASANT AND COOPERATIVE, SLEPT WELL DURING THE NIGHT, ON RA, Q4 VITALS, UP WITH GATE BELT AND WALKER, HAS A DOUBLE LUMEN PICC LINE IN RIGHT UPPER ARM THAT FLUSHES AND ASPIRATES WELL, FLUIDS RUNNING, DENIES N/V, SOA, PAIN. CALL LIGHT WITHIN REACH, BED ALARM ON.
[2016-07-18] MEDS: METRONIDAZOLE IVPB 500 MG in NORMAL SALINE 100 ML IV SCH ×3 (06:26→21:51)
[2016-07-18 07:19] VITALS: BP 131/75; PULSE 72; RESP 16; TEMP 97.2; O2SAT 98
[2016-07-18 07:54] LABS: HCT - HEMATOCRIT 28.6 % (41-53); HGB - HEMOGLOBIN 8.8 GM/DL (13.5-17.5); MEAN CORPUSCULAR HGB 31.4 UUG (26-34); MEAN CORPUSCULAR HGB CONC(MCHC 30.8 GM/DL (31-37); MEAN CORPUSCULAR VOLUME 102.1 UM3 (80-100); MEAN PLATELET VOLUME 8.9 UM3 (9.4-12.4); WBC - WHITE BLOOD COUNT 10.4 T/MM3 (4.5-11.0)
[2016-07-18 08:05] LABS: ALBUMIN 2.2 G/DL (3.5-5.0); ALBUMIN/GLOBULIN RATIO 0.6 RATIO (1.1-2.2); ALKALINE PHOSPHATASE 1354 U/L (38-126); ALT (SGPT) 158 U/L (21-72); ANION GAP 9 MEQ/L (5-15); AST (SGOT) 199 U/L (17-59); BUN/CREATININE RATIO 13 RATIO (6-26); CALCIUM 8.3 MG/DL (8.4-10.2); CHLORIDE 108 MEQ/L (98-107); CO2 - CARBON DIOXIDE 22 MEQ/L (22-30); CREATININE 0.6 MG/DL (0.8-1.5); GLOMERULAR FILTRATION RATE 137; GLUCOSE 87 MG/DL (75-110); SODIUM 139 MEQ/L (134-144); TOTAL PROTEIN 6.1 G/DL (6.3-8.2)
[2016-07-18] MEDS ORDERED: POTASSIUM CHLORIDE 20 MEQ TABLET PO ONE ×2 (08:15→12:00)
[2016-07-18 08:45] LABS: TOTAL CELLS COUNTED 100 %
[2016-07-18 08:48] LABS: BAND NEUTROPHILS # 55595576.6 T/MM3; EOSINOPHILS # (MANUAL) 111191153.1 T/MM3 (0-0.5); METAMYELOCYTES # 55595576.6 T/MM3; MONOCYTES # (MANUAL) 166786729.7 T/MM3 (0-0.8); MYELOCYTES # 55595576.6 T/MM3
[2016-07-18 08:50] LABS: ANISOCYTOSIS 1+
[2016-07-18] MEDS: NORMAL SALINE 1,000 ML IV SCH ×2 (09:35→19:46)
[2016-07-18] MEDS: ERTAPENEM 1 G in NORMAL SALINE 100 ML IV SCH (09:35)
[2016-07-18 09:42] LABS: NEUTROPHILS #(MANUAL)-ABSOLUTE 8.6 T/MM3 (1.8-7.7)
[2016-07-18 11:17] VITALS: BP 115/69; PULSE 67; RESP 17; TEMP 97.4; O2SAT 99
--- NOTE | 2016-07-18 14:10 | NUR ---
CM CM VISITED PT AND SPOUSE. CM DISCUSSED ROT PROGRAM AND PROVIDED FLIER. SPOUSE DOES NOT FEEL THAT PT NEEDS ROT PROGRAM BUT THEY WILL REVIEW AND CONSIDER. PT WILL NOTIFY CM IF WANTS ROT PROGRAM. CM VERBALIZED.
[2016-07-18 15:20] VITALS: BP 109/65; PULSE 68; RESP 17; TEMP 97.9; O2SAT 99
--- NOTE | 2016-07-18 18:58 | PNPDOC ---
Subjective Date DATE: 07/18/16 TIME: 18:53 Subjective Patient seen and examined in his room. He is still jaundice. Denies chest pain or shortness of breath. He does have some abdominal tenderness. He has been up to the bathroom today and did walk once with physical therapy. He denies fevers chills or night sweats. Objective Vital Signs Vital signs Vital Signs 07/18/16 07/18/16 07/18/16 07:19 11:17 15:20 Temp 97.2 97.4 97.9 Pulse 72 67 68 Resp 16 17 17 B/P 131/75 115/69 109/65 Pulse Ox 98 99 99 O2 Delivery Room Air Room Air Room Air Telemetry Rhythm: Sinus Rhythm Height (Feet): 6 Height (Inches): 1.00 Weight (Kilograms): 95.500 General General Appearance: Alert, Overweight, Cooperative, No Acute Distress Eyes (Brief) Eyes: FOUND: EOMI, PERRL, scleral icterus Neck (Brief) Neck Brief: NOT FOUND: JVD, adenopathy, carotid bruits, thyromegaly Respiratory (Brief) Respiratory Brief: FOUND: clear all pires, equal bilaterally, NOT FOUND: rales , wheezes Cardiovascular (Brief) Cardiac: FOUND: murmur, regular rate, regular rhythm, NOT FOUND: pedal edema Abdomen (Brief) Abdominal: FOUND: BS normo active x4, soft, tender Extremities (Brief) Extremity : Extremity Finding: FOUND: edema Lymphatic (Brief) Lymphatic Brief: NOT FOUND: adenopathy, lymphedema Musculoskeletal (Brief) Musculoskeletal Brief: NOT FOUND: deformity, loss of motion, spasm, tenderness Integumentary (Brief) Integumentary: FOUND: dry, warm, NOT FOUND: rash Comments Jaundice Neurologic (Brief) Neurologic: FOUND: cranial 2-12 intact, motor, sensory Psychiatric (Brief) Psychiatric: FOUND: alert, attentive, normal affect, oriented Laboratory Laboratory Laboratory Tests 07/18/16 07:44 Laboratory Tests 07/18/16 07:44 Microbiology Microbiology Microbiology Date/Time Source Procedure Growth Status 07/16/16 19:04 Peripheral/Iv Start Blood Culture - Preliminary NO GROWTH AFTER 24 HOURS Resulted 07/16/16 18:57 Peripheral/Iv Start Blood Culture - Preliminary NO GROWTH AFTER 24 HOURS Resulted 07/16/16 17:11 Urine, Clean Catch-Midstream Urine Culture - Final Mixed Gram Positive Organisms Complete Sepsis Diagnostic Criteria Sepsis Confirmed/Suspected Infection: Yes SIRS Criteria: Pulse >= 90 beats/min, WBC >=12,000 or <=4,000 Severe Sepsis Bilirubin>2mg/dL Assessment & Plan Problems: (1) Elevated liver enzymes Status: Acute (2) Acute cholestatic jaundice syndrome Status: Acute Assessment & Plan: Bilirubin = 8.1 (3) Liver lesion, right lobe Status: Acute (4) Hypertension Status: Chronic Qualifiers: Hypertension type: essential hypertension Qualified Codes: I10 - Essential (primary) hypertension (5) Atrial fibrillation Qualifiers: Atrial fibrillation type: paroxysmal Qualified Codes: I48.0 - Paroxysmal atrial fibrillation (6) History of TIA (transient ischemic attack) Status: Resolved Code Status Full Code Hospital Course Summary Disclaimer The hospital course summary below is not to be considered part of the above Progress Note. Hospital Course Summary Patient is improving. I will transfer to medical floor. 07/18/2016: Kailash seems improved today from admit. He is still quite jaundiced. He is anemic his white count is now normal. 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 Thus far his blood cultures are negative. I will reimage his chest and abdomen tomorrow with IV contrast and see if it would be appropriate to begin place a drain in a liver abscess. JOSE MARIA GRIMALDO DO July 18, 2016 18:57
[2016-07-18 20:00] VITALS: BP 125/72; PULSE 74; RESP 16; TEMP 98; O2SAT 98
[2016-07-19] VITALS (8 sets, daily range): BP systolic 107–137; BP diastolic 65–80; PULSE 70–77; RESP 16–20; TEMP 96.8–98.1; O2SAT 97–99
[2016-07-19] MEDS: NORMAL SALINE 1,000 ML IV SCH ×4 (02:49→21:45)
--- NOTE | 2016-07-19 05:00 | NUR ---
SHIFT SUMMARY: PT IS A&OX3, PLEASANT AND COOPERATIVE, SLEPT WELL DURING THE NIGHT, ON RA, Q4 VITALS, UP WITH GATE BELT AND WALKER, HAS A DOUBLE LUMEN PICC LINE IN RIGHT UPPER ARM THAT FLUSHES AND ASPIRATES WELL, FLUIDS RUNNING, DENIES N/V, SOA, OR PAIN. CALL LIGHT WITHIN REACH, BED ALARM ON.
[2016-07-19] MEDS: METRONIDAZOLE IVPB 500 MG in NORMAL SALINE 100 ML IV SCH ×3 (05:21→21:56)
[2016-07-19 05:24] LABS: HGB - HEMOGLOBIN 8.5 GM/DL (13.5-17.5); MEAN CORPUSCULAR HGB 31.4 UUG (26-34); MEAN CORPUSCULAR HGB CONC(MCHC 31.5 GM/DL (31-37); MEAN CORPUSCULAR VOLUME 99.6 UM3 (80-100); MEAN PLATELET VOLUME 9.2 UM3 (9.4-12.4); RED BLOOD COUNT 2.71 M/MM3 (4.50-5.90); WBC - WHITE BLOOD COUNT 9.6 T/MM3 (4.5-11.0)
[2016-07-19 05:28] LABS: ALBUMIN/GLOBULIN RATIO 0.5 RATIO (1.1-2.2); ALKALINE PHOSPHATASE 1241 U/L (38-126); ALT (SGPT) 157 U/L (21-72); ANION GAP 8 MEQ/L (5-15); AST (SGOT) 201 U/L (17-59); BUN/CREATININE RATIO 12 RATIO (6-26); CHLORIDE 111 MEQ/L (98-107); CO2 - CARBON DIOXIDE 22 MEQ/L (22-30); CREATININE 0.6 MG/DL (0.8-1.5); GLOMERULAR FILTRATION RATE 137; GLUCOSE 85 MG/DL (75-110); POTASSIUM 3.5 MEQ/L (3.6-5); SODIUM 141 MEQ/L (134-144); TOTAL PROTEIN 5.9 G/DL (6.3-8.2)
[2016-07-19] MEDS ORDERED: NORMAL SALINE 100 ML ONE (06:51)
[2016-07-19] MEDS ORDERED: IOHEXOL 300 MG/ML 100ml INJECTION ONE (06:51)
[2016-07-19] MEDS ORDERED: SALINE FLUSH 10ml SYRINGE ONE (06:51)
[2016-07-19 07:05] LABS: ANISOCYTOSIS 1+; BAND NEUTROPHILS # 0.3 T/MM3; BASOPHILS # (MANUAL) 0.1 T/MM3 (0-0.2); EOSINOPHILS # (MANUAL) 0.8 T/MM3 (0-0.5); LYMPHOCYTES # (MANUAL) 0.9 T/MM3 (1-4.8); METAMYELOCYTES # 0.1 T/MM3; MONOCYTES # (MANUAL) 0.2 T/MM3 (0-0.8); MYELOCYTES # 0.2 T/MM3; NEUTROPHILS #(MANUAL)-ABSOLUTE 7.1 T/MM3 (1.8-7.7); TOTAL CELLS COUNTED 100 %
[2016-07-19] MEDS: ERTAPENEM 1 G in NORMAL SALINE 100 ML IV SCH (08:48)
--- NOTE | 2016-07-19 09:05 | DI ---
Indication: ITS.REASON: liver abscesses PROCEDURE: CT CHEST/ABDOMEN W/C: Encounter: Subsequent Comparison: CT abdomen/pelvis dated July 16, [address] chest, abdomen and pelvis dated March 10, 2016 Technique: Axial CT images were performed through the chest and abdomen after the administration of intravenous contrast. Coronal and sagittal two-dimensional reformats. Automated Exposure Control and Iterative Reconstruction dose reducing techniques were utilized. Contrast: Omnipaque 300 100 mL Findings: Chest: Increased small left pleural effusion. Decreased small right effusion. Improving right basilar atelectasis with a small area of rounded atelectasis remaining. Probable pleural scarring on the right. No pneumothorax. Respiratory motion artifact. New vague groundglass opacities within the left upper lobe and lingula are obscured by motion. The central airways appear patent. No axillary adenopathy. Heart size is normal. No pericardial effusion. Great vessels are unchanged. Interval enlargement of a right paratracheal node on axial image #29 measuring 1 cm in short axis dimension compared to 0.8 cm previously. Increasing size of a subcarinal node on image #31, now measuring 1.5 cm in short axis. Abdomen: Low-attenuation lesion in the superior right hepatic lobe on image #12 measures 3.4 cm in diameter. This is grossly stable from the very recent comparison but substantially decreased in size from the February exam. There is severe intrahepatic bile duct dilatation which is more apparent on the contrast-enhanced study. This is new from the February exam. Hypoenhancing lesion in the central aspect of the liver near the gallbladder fossa measures 7.3 x 5.1 x 6.8 cm in diameter. This is immediately adjacent to the gallbladder and has grown substantially since March 10 when it measured 4 cm in maximal diameter. The extrahepatic common duct appears mildly dilated proximally. Again there is an exophytic nodular lesion adjacent to the hepatic flexure of the colon best seen on coronal image #25 measuring 3.9 x 1.6 cm in diameter. The spleen is within normal limits. The adrenal glands appear normal. The kidneys are normal. There is some inflammatory stranding seen in the right abdomen along the hepatic flexure of the colon. No gross mesenteric or retroperitoneal adenopathy in the abdomen. There is some probable reactive wall thickening in the hepatic flexure area of the colon. There also appears to be some wall thickening or fatty infiltration of the distal ileum. Bone windows are stable without obvious lytic or blastic bony lesion. Impression: 1. Interval development of severe intrahepatic bile duct dilatation with a centrally located large hypoenhancing hepatic mass that has grown significantly in the past four months. 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 The other low-attenuation foci probably represent hepatic abscesses that have responded to treatment. Less likely the centrally located low attenuation focus could represent an ongoing hepatic abscess. Biopsy is recommended if this has not been performed. 2. Enlarging mediastinal nodes raising concern for metastatic disease. Extrahepatic nodule near the splenic flexure of the colon could represent a peritoneal metastasis. 3. Small bilateral pleural effusions. .
[2016-07-19] MEDS: POTASSIUM CHLORIDE 20 MEQ TABLET PO SCH (11:52)
--- NOTE | 2016-07-19 15:05 | NUR ---
ambulated in hansen gait is steady co of feeling weak tires easily back to bed co of some abd pain when he coughs.
--- NOTE | 2016-07-19 17:17 | CONSPD ---
Consultation Info Date DATE: 07/19/16 TIME: 17:07 Date of Consultation: July 19, 2016 Attending Physician: Víctor Reason for Consultation: Liver lesions HPI - Adult Date DATE: 07/19/16 TIME: 17:07 General Chief Complaint: Jaundice History of Present Illness Per Dr. Fishman Past Medical History Past Medical History Patient's Medical History: (1) History of TIA (transient ischemic attack) (2) Coronavirus infection (3) Liver lesion, right lobe (4) Obesity (5) Acute renal failure (6) Respiratory failure, acute (7) Hypertension (8) Atrial fibrillation Surgical History Patient's Surgical History: Chest tube insertion, Abscess Drains from Liver, R-knee surgery, left foot-multiple operations, R-TKA, Colonoscopy, 2016 Umbillical hernia Current Medications Home Meds Reported Medications Multivitamin with Minerals (Men's One Daily) 1 Each Tablet, 1 TAB PO DAILY 07/16/16 Ascorbic Acid (Vitamin C) 500 Mg Tablet, 500 MG PO DAILY 07/16/16 Cholecalciferol (Vitamin D3) 1,000 Unit Tablet, 1000 UNIT PO DAILY 07/16/16 Amlodipine Besylate (Amlodipine Besylate) 5 Mg Tablet, 5 MG PO HS 07/16/16 Metoclopramide HCl (Metoclopramide HCl) 10 Mg Tablet, 10 MG PO QID Y for PRN ORDERS 07/16/16 Amiodarone HCl (Amiodarone HCl) 200 Mg Tablet, 200 MG PO DAILY 07/16/16 Phenazopyridine HCl (Phenazopyridine HCl) 100 Mg Tablet, 200 MG PO TID Y for PRN ORDERS 07/16/16 Melatonin (Melatonin) Unknown Strength Tablet, PO HS 07/16/16 Fexofenadine HCl (Kandace Allergy) 180 Mg Tablet, 180 MG PO DAILY Y for ALLERY SYMPTOMS 07/16/16 Allergies: Coded Allergies: No Known Drug Allergies (Verified Allergy, Unknown, 07/16/16) Family History Family History: Father--Lung CA, CAD Social History Smoking Status: Never smoker Does patient use chewing tobac: No Second Hand Exposure: No Substance Use Type: does not use Alcohol Intake: none Last Drink: unknown Marital Status: Sexuality: female partner Housing: house Household Members: spouse Service: No Current Occupational Status: employed Occupational Hazard: No Advance Directives: No DPOA for Healthcare Only GS Review of Systems General REPORTS unexplained weight loss, REPORTS other (general malaise) Cardiovascular REPORTS other (tachycardia) Gastrointestional REPORTS other (abd pain) Genitourinary REPORTS pain with urination, REPORTS other (dark urine) Neurological REPORTS muscle weakness Psychiatric REPORTS anxiety Hematologic REPORTS easy bruising GS Physical Exam Vital Signs Date Time Temp Pulse Resp B/P Pulse Ox O2 Delivery O2 Flow Rate FiO2 07/19/16 15:49 97.8 74 18 119/67 99 Room Air Height (Feet): 6 Height (Inches): 1.00 Weight (Kilograms): 97.500 BMI 26.0 Laboratory Laboratory Tests 07/17/16 04:48 07/18/16 07:44 07/19/16 04:46 Laboratory Tests 07/17/16 04:48 07/18/16 07:44 07/19/16 04:46 Sepsis Diagnostic Criteria General Variables: FOUND Heart Rate >90/min, FOUND Tachypnea Organ Dysfunction Variables: FOUND Hyperbilirubinemia NELDA OLIVAS APRN July 19, 2016 17:10
--- NOTE | 2016-07-19 18:12 | NUR ---
resting in bed verbalizing liver biopsy of tomorrow. at bedside.
[2016-07-19] MEDS ORDERED: PHYTONADIONE 10mg/ml (Adult) INJECTION SQ ONE (20:30)
--- NOTE | 2016-07-19 20:53 | PNPDOC ---
Subjective Date DATE: 07/19/16 TIME: 20:46 Subjective Patient seen and examined in his room. After reviewing his CAT scan earlier today, I contacted Dr. Fishman for surgical consultation for a hepatic mass that was suspicious for cholangiocarcinoma. He did see the patient in consultation and concurs. We will have him scheduled for a CT-guided biopsy of this mass for tomorrow morning. Aside from being shellshocked over the news, Kailash is putting on a brave face this evening. He is still jaundice and still has abdominal discomfort. Otherwise he denies fevers chills or night sweats. Objective Vital Signs Vital signs Vital Signs 07/19/16 07/19/16 07/19/16 11:49 15:49 20:11 Temp 96.8 97.8 97.8 Pulse 77 74 75 Resp 18 18 20 B/P 134/80 119/67 115/65 Pulse Ox 98 99 97 O2 Delivery Room Air Room Air Room Air Telemetry Rhythm: Sinus Rhythm Height (Feet): 6 Height (Inches): 1.00 Weight (Kilograms): 97.500 General General Appearance: Alert Comments Depressed affect Eyes (Brief) Eyes: FOUND: EOMI, PERRL, scleral icterus Neck (Brief) Neck Brief: NOT FOUND: JVD, adenopathy, carotid bruits, thyromegaly Respiratory (Brief) Respiratory Brief: FOUND: clear all pires, equal bilaterally, NOT FOUND: rales , wheezes Cardiovascular (Brief) Cardiac: FOUND: regular rate, regular rhythm, NOT FOUND: pedal edema Abdomen (Brief) Abdominal: FOUND: soft, tender (right upper quadrant and epigastrium as well as suprapubic) Extremities (Brief) Extremity : Extremity Finding: FOUND: edema Lymphatic (Brief) Lymphatic Brief: NOT FOUND: adenopathy, lymphedema Musculoskeletal (Brief) Musculoskeletal Brief: NOT FOUND: deformity, loss of motion, spasm, tenderness Integumentary (Brief) Integumentary: FOUND: warm Comments Jaundice Neurologic (Brief) Neurologic: FOUND: cranial 2-12 intact, motor, sensory Psychiatric (Brief) Psychiatric: FOUND: alert, attentive, oriented, NOT FOUND: normal affect Laboratory Laboratory Laboratory Tests 07/19/16 04:46 Laboratory Tests 07/19/16 04:46 Radiology Name: KAILASH AWAN Unit #: [id number] : 1955 Sex: M Loc / Svc: MED 139 Admit Date: 07/16/16 Signed Page 1 of 2 Printed: [~ rep prt dt last] [~ rep prt tm last] Discharge Date: DIAGNOSTIC IMAGING REPORT Report #: [id number] [~ rep ct labl] DATE OF EXAM: 07/19/16 ORDERING DOCTOR: JOSE MARIA GRIMALDO DO TYPE OF EXAM: CT CHEST/ABDOMEN W/C REASON FOR EXAM: liver abscesses Indication: ITS.REASON: liver abscesses PROCEDURE: CT CHEST/ABDOMEN W/C: Encounter: Subsequent Comparison: CT abdomen/pelvis dated July 16, [address] chest, abdomen and pelvis dated March 10, 2016 Technique: Axial CT images were performed through the chest and abdomen after the administration of intravenous contrast. Coronal and sagittal two-dimensional reformats. Automated Exposure Control and Iterative Reconstruction dose reducing techniques were utilized. Contrast: Omnipaque 300 100 mL Findings: Chest: Increased small left pleural effusion. Decreased small right effusion. Improving right basilar atelectasis with a small area of rounded atelectasis remaining. Probable pleural scarring on the right. No pneumothorax. Respiratory motion artifact. New vague groundglass opacities within the left upper lobe and lingula are obscured by motion. The central airways appear patent. No axillary adenopathy. Heart size is normal. No pericardial effusion. Great vessels are unchanged. Interval enlargement of a right paratracheal node on axial image #29 measuring 1 cm in short axis dimension compared to 0.8 cm previously. Increasing size of a subcarinal node on image #31, now measuring 1.5 cm in short axis. Abdomen: Low-attenuation lesion in the superior right hepatic lobe on image #12 measures 3.4 cm in diameter. This is grossly stable from the very recent comparison but substantially decreased in size from the February exam. There is severe intrahepatic bile duct dilatation which is more apparent on the contrast-enhanced study. This is new from the February exam. Hypoenhancing lesion in the central aspect of the liver near the gallbladder fossa measures 7.3 x 5.1 x 6.8 cm in diameter. This is immediately adjacent to the gallbladder and has grown substantially since March 10 when it measured 4 cm in maximal diameter. The extrahepatic common duct appears mildly dilated proximally. Again there is an exophytic nodular lesion adjacent to the hepatic flexure of the colon best seen on coronal image #25 measuring 3.9 x 1.6 cm in diameter. The spleen is within normal limits. The adrenal glands appear normal. The kidneys are normal. There is some inflammatory stranding seen in the right abdomen along the hepatic flexure of the colon. No gross mesenteric or retroperitoneal adenopathy in the abdomen. There is some probable reactive wall thickening in the hepatic flexure area of the colon. There also appears to be some wall thickening or fatty infiltration of the distal ileum. Bone windows are stable without obvious lytic or blastic bony lesion. Impression: 1. Interval development of severe intrahepatic bile duct dilatation with a centrally located large hypoenhancing hepatic mass that has grown significantly in the past four months. 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 The other low-attenuation foci probably represent hepatic abscesses that have responded to treatment. Less likely the centrally located low attenuation focus could represent an ongoing hepatic abscess. Biopsy is recommended if this has not been performed. 2. Enlarging mediastinal nodes raising concern for metastatic disease. Extrahepatic nodule near the splenic flexure of the colon could represent a peritoneal metastasis. 3. Small bilateral pleural effusions. . Addendum: The other low attenuation lesions remaining in the right lobe of the liver could also represent intrahepatic metastases. . Sepsis Diagnostic Criteria Sepsis Confirmed/Suspected Infection: Yes SIRS Criteria: Pulse >= 90 beats/min, WBC >=12,000 or <=4,000 Severe Sepsis Bilirubin>2mg/dL Assessment & Plan Problems: (1) Liver mass, right lobe (2) Elevated liver enzymes Status: Acute (3) Acute cholestatic jaundice syndrome Status: Acute Assessment & Plan: Bilirubin = 8.1 (4) Liver lesion, right lobe Status: Acute (5) Hypertension Status: Chronic Qualifiers: Hypertension type: essential hypertension Qualified Codes: I10 - Essential (primary) hypertension (6) Atrial fibrillation Qualifiers: Atrial fibrillation type: paroxysmal Qualified Codes: I48.0 - Paroxysmal atrial fibrillation (7) History of TIA (transient ischemic attack) Status: Resolved Code Status Full Code Hospital Course Summary Disclaimer The hospital course summary below is not to be considered part of the above Progress Note. Hospital Course Summary Patient is improving. I will transfer to medical floor. 07/18/2016: Kailash seems improved today from admit. He is still quite jaundiced. He is anemic his white count is now normal. 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 Thus far his blood cultures are negative. I will reimage his chest and abdomen tomorrow with IV contrast and see if it would be appropriate to begin place a drain in a liver abscess. 07/19/2016: After reviewing the CT of his chest and abdomen, I consulted Dr. Fishman in general surgery area and he concurs that this appears to be consistent with cholangiocarcinoma. At that time I ordered a CEA level which came back markedly elevated as did his CA-19-9. His CA-19-9 was 14,000. He is scheduled for CT-guided liver biopsy tomorrow and at that time I need to transfer him to [place] for biliary stent placement. JOSE MARIA GRIMALDO DO July 19, 2016 20:49
--- NOTE | 2016-07-19 23:27 | CONSF ---
DATE OF CONSULTATION 07/19/2016 FINDINGS Mr. Jones is a 60-year-old gentleman who I was asked to see today as a new patient/in consultation. Mr. Jones has a fairly complicated history. In February of this year he had presented to our facility as a result of his history for fever and shaking chills. He did undergo further evaluation and was found to have numerous hepatic abscesses. Patient states that he was transferred to [facility] and was seen by an infectious disease physician at that time. He states that he did undergo placement of multiple drains in his liver which were percutaneous in nature. informs me that he did develop some fluid within the left and right lung as well during this prior hospitalization. She states that they were able to "drain the fluid off the left side" but that he needed to have "surgery on the right." She states that they had "roughened up the lining of the lung cavity." It sounds as if he had a minithoracotomy and pleurodesis. Patient was subsequently transferred to a care facility in [place] where he remained until the beginning of June. The patient was discharged back to home with home health care. Patient states that he has never recovered from this illness and has continued to be quite weak and fatigued. states that he "falls asleep fairly easily." Patient states that he began to notice that his urine looked like "transmission fluid." He also began to notice that there was some minimal burning on urination and felt as if he was developing a urinary tract infection. Patient states that he brought this to the attention of his home health care nurse who had recommended that he present to the hospital for further evaluation. Patient has subsequently been admitted. Repeat CT scan was obtained that did reveal improvement of his multiple hepatic abscesses noted previously. Unfortunately he has a new large mass centrally located within the liver suggestive of a cholangiocarcinoma. Additionally on radiograph evaluation there is evidence for possible metastatic disease. Past Medical History, Past Surgical History, Medications, Allergies, Social History, Family History, Review of Systems performed by my nurse practitioner, Ned Dunlap. PHYSICAL EXAMINATION GENERAL: Kailash is a 60-year-old gentleman who did appear slightly older than his stated age. He did appear slightly icteric in nature. VITAL SIGNS: Afebrile, normotensive. Current vitals include temperature 97.8, pulse 74, respirations 18, blood pressure 119/67, SaO2 99% room air. HEENT: Normocephalic. Pupils are equally round and react to light and accommodation. NECK: Supple without lymphadenopathy. CHEST: Clear to auscultation bilaterally. HEART: Regular rate and rhythm. Normal S1 and S2 without gallops, murmurs or clicks. ABDOMEN: Palpation of the abdomen reveals it to be soft. Firm palpation within the right upper quadrant did not elicit any discomfort to the patient. I really was unable to appreciate an obvious mass upon palpation within the right subcostal region. No hepatomegaly was noted. EXTREMITIES: Without clubbing, cyanosis, or edema. NEURO: Cranial nerves II-XII grossly intact. Patient is without focal motor or sensory deficits. LABORATORY/RADIOGRAPH EVALUATION I did spend a fair amount of time reviewing the patient's electronic medical record. I did go back to his prior visit in February and saw that he did have a liver biopsy obtained during this admission. Liver biopsy did reveal some foci of necrotic cellular debris. Additionally there was marked sinusoidal dilatation with a component of some chronic portal inflammation. No malignant neoplasm was identified. I did review his recent CT scans from this admission as well as the CT scan that was obtained through the ER earlier this week. Unfortunately the patient does have a highly suspicious mass involving the confluence of left to right hepatic ducts consistent with that of a Klatskin tumor. Tumor does not appear to be consistent with that of a hepatic abscess. Patient also had some enlarging mediastinal nodes as well as an extrahepatic nodule noted near the hepatic flexure suggestive of possible peritoneal metastasis. It did have significant intrahepatic biliary dilatation. It is within the realm of possibilities, however, that this residual liver mass could be an ongoing hepatic abscess. From a laboratory standpoint, patient's white count was slightly elevated at 12.4 on admission. His white count is now 9.6. Hemoglobin has been low since admission and is currently 8.5. CMP was obtained on admission and his total bilirubin was 7.10. This has slightly decreased to 6.8. The patient's liver function tests are elevated with a GGT of 613, AST of 201, ALT of 157, and his alkaline phosphatase is significantly elevated at 1241. CEA level was also obtained and unfortunately found to be elevated today at 40.4. ASSESSMENT A 60-year-old gentleman with a history for multiple hepatic abscesses, new development of enlarging centrally located hepatic mass worrisome for cholangiocarcinoma/Klatskin tumor. PLAN I did discuss the case with our radiologist. Our radiologist does feel that he will be able to proceed with a percutaneous biopsy of this hepatic mass. It would be my recommendation that we proceed with biopsy of this hepatic mass. Hopefully we are dealing with that of an abscess and that this is indeed the case. The patient may benefit from being transferred to [place] where a drain can be placed within the hepatic abscess and an ID consult undertaken. It is my intuition, however, that this mass will return as malignant in nature. If indeed this mass is malignant I do not feel that it is resectable in nature, and the patient will also likely need to be sent to a tertiary care facility where he can undergo placement of biliary stents either via an ERCP by Gastroenterology or transhepatically by an interventional radiologist. I have discussed the above CT scan findings and my recommendations with the patient and his . I have also discussed these findings and recommendations with the patient's PCP, Dr. Rashawn Renee. I will be out tomorrow on vacation over the upcoming holiday weekend. If any general surgical care is needed, please contact general surgeon on-call. DORIAN
[2016-07-20] VITALS (13 sets, daily range): BP systolic 108–126; BP diastolic 69–81; PULSE 67–76; RESP 13–73; TEMP 97.1–98.2; O2SAT 97–100
[2016-07-20] MEDS ORDERED: MELATONIN 5 MG TABLET PO ONE (01:00)
[2016-07-20] MEDS ORDERED: DiphenhydrAMINE 25 MG CAPSULE PO PRN (01:00)
[2016-07-20] MEDS: NORMAL SALINE 1,000 ML IV SCH (02:45)
--- NOTE | 2016-07-20 03:54 | NUR ---
SHIFT SUMMARY PT IS A/O X 3. PLEASANT AND COOPERATIVE WITH CARES. DR TURNER HERE TO SEE PT AROUND 2029. HE REVIEWED WITH PT PLAN OF CARE AND LET THE PT ASK QUESTIONS CONCERNING THE LIVER CANCER. PT WAS VERY QUIET WHEN STAFF WAS IN HIS ROOM. WHEN ASKED IF HE HAD QUESTIONS BY THIS NURSE PT STARTED SHARE HOW HE WAS SICK IN FEB. LET PT TALK ABOUT HIS CONCERNS.
[2016-07-20] MEDS: METRONIDAZOLE IVPB 500 MG in NORMAL SALINE 100 ML IV SCH ×2 (05:57→14:24)
[2016-07-20 06:08] LABS: HCT - HEMATOCRIT 27.4 % (41-53); HGB - HEMOGLOBIN 8.5 GM/DL (13.5-17.5); MEAN CORPUSCULAR HGB 32.1 UUG (26-34); MEAN CORPUSCULAR VOLUME 103.4 UM3 (80-100); MEAN PLATELET VOLUME 9.2 UM3 (9.4-12.4); RED BLOOD COUNT 2.65 M/MM3 (4.50-5.90); WBC - WHITE BLOOD COUNT 9.6 T/MM3 (4.5-11.0)
[2016-07-20 06:14] LABS: INR 1.91 (0.77-1.03); PROTHROMBIN TIME 20.9 SEC (9.48-12.52)
[2016-07-20 06:25] LABS: ALBUMIN/GLOBULIN RATIO 0.6 RATIO (1.1-2.2); ALKALINE PHOSPHATASE 1158 U/L (38-126); ALT (SGPT) 151 U/L (21-72); ANION GAP 9 MEQ/L (5-15); AST (SGOT) 201 U/L (17-59); BUN/CREATININE RATIO 8 RATIO (6-26); CALCIUM 7.9 MG/DL (8.4-10.2); CHLORIDE 110 MEQ/L (98-107); CO2 - CARBON DIOXIDE 21 MEQ/L (22-30); CREATININE 0.6 MG/DL (0.8-1.5); GLOMERULAR FILTRATION RATE 137; GLUCOSE 72 MG/DL (75-110); POTASSIUM 3.4 MEQ/L (3.6-5); SODIUM 140 MEQ/L (134-144); TOTAL PROTEIN 5.6 G/DL (6.3-8.2)
[2016-07-20 06:56] LABS: ANISOCYTOSIS 1+; BAND NEUTROPHILS # 0.2 T/MM3; EOSINOPHILS # (MANUAL) 0.7 T/MM3 (0-0.5); LYMPHOCYTES # (MANUAL) 0.9 T/MM3 (1-4.8); MONOCYTES # (MANUAL) 0.3 T/MM3 (0-0.8); NEUTROPHILS #(MANUAL)-ABSOLUTE 7.5 T/MM3 (1.8-7.7); PROLYMPHOCYTES # 0.1 T/MM3; TOTAL CELLS COUNTED 100 %
[2016-07-20] MEDS: POTASSIUM CHLORIDE 20 MEQ TABLET PO SCH (08:30)
[2016-07-20] MEDS: ERTAPENEM 1 G in NORMAL SALINE 100 ML IV SCH (09:32)
--- NOTE | 2016-07-20 09:40 | NUR ---
remain npo for liver biospy feels weal today some dependent edema noted on luis flank areas.denies any pain urine remains dark corin in color.
[2016-07-20] MEDS ORDERED: NORMAL SALINE 500 ML IV SCH (10:17)
--- NOTE | 2016-07-20 11:39 | NUR ---
ffp hung infusing thru R piccline. premit signed
--- NOTE | 2016-07-20 13:20 | NUR ---
to radiology for us liver biopsy
[2016-07-20] MEDS ORDERED: LIDOCAINE 1% 30ml (STERI-PAK) ONE (13:22)
--- NOTE | 2016-07-20 14:10 | NUR ---
returned from xray FFP Iinfused vs taken and stable to be transferred to [place].
--- NOTE | 2016-07-20 14:16 | DSPDOC ---
Discharge Diagnoses Discharge Diagnoses (1) Liver mass, right lobe Comments: Suspicious for cholangiocarcinoma (2) Elevated liver enzymes (3) Acute cholestatic jaundice syndrome Comments: Bilirubin = 8.1 (4) Liver lesion, right lobe (5) Hypertension (6) Atrial fibrillation Comments: Paroxysmal atrial fibrillation (7) History of TIA (transient ischemic attack) Hospital Course Patient is improving. I will transfer to medical floor. 07/18/2016: Kailash seems improved today from admit. He is still quite jaundiced. He is anemic his white count is now normal. 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 Thus far his blood cultures are negative. I will reimage his chest and abdomen tomorrow with IV contrast and see if it would be appropriate to begin place a drain in a liver abscess. 07/19/2016: After reviewing the CT of his chest and abdomen, I consulted Dr. Fishman in general surgery area and he concurs that this appears to be consistent with cholangiocarcinoma. At that time I ordered a CEA level which came back markedly elevated as did his CA-19-9. His CA-19-9 was 14,000. He is scheduled for CT-guided liver biopsy tomorrow and at that time I need to transfer him to [place] for biliary stent placement. Home Meds Reported Medications Multivitamin with Minerals (Men's One Daily) 1 Each Tablet, 1 TAB PO DAILY 07/16/16 Ascorbic Acid (Vitamin C) 500 Mg Tablet, 500 MG PO DAILY 07/16/16 Cholecalciferol (Vitamin D3) 1,000 Unit Tablet, 1000 UNIT PO DAILY 07/16/16 Amlodipine Besylate (Amlodipine Besylate) 5 Mg Tablet, 5 MG PO HS 07/16/16 Amiodarone HCl (Amiodarone HCl) 200 Mg Tablet, 200 MG PO DAILY 07/16/16 Phenazopyridine HCl (Phenazopyridine HCl) 100 Mg Tablet, 200 MG PO TID Y for PRN ORDERS 07/16/16 Melatonin (Melatonin) Unknown Strength Tablet, PO HS 07/16/16 Fexofenadine HCl (Kandace Allergy) 180 Mg Tablet, 180 MG PO DAILY Y for ALLERY SYMPTOMS 07/16/16 Discontinued Reported Medications Metoclopramide HCl (Metoclopramide HCl) 10 Mg Tablet, 10 MG PO QID Y for PRN ORDERS 07/16/16 Discharge Disposition Transfer to [facility] for biliary stent placement of obstructive jaundice Copies To 1: JOSE MARIA GRIMALDO DO Follow up Condition at time of discharge: Fair Follow up As needed JOSE MARIA GRIMALDO DO July 20, 2016 14:15
[2016-07-20] MEDS ORDERED: SALINE FLUSH 10ml SYRINGE IVF ONE (15:02)
[2016-07-20] MEDS ORDERED: MIDAZOLAM 2mg/2ml INJECTION IV ONE (15:02)
[2016-07-20] MEDS ORDERED: FENTANYL 100mcg/2ml INJECTION IV ONE (15:02)
--- NOTE | 2016-07-20 15:04 | NUR ---
SHEKHAR GRIMALDO IS TRANSFERRING PT TO [facility] TODAY PER EMS. CM FAXED APPROPRIATE ORDERS AND RECEIVED BED ASSIGNMENT FROM [facility]. PT PRESENT AND AWARE OF BUILDING/ROOM NUMBER AT [facility]. SPOUSE AWARE TO CONTACT CM IF NEEDS [facility].
--- NOTE | 2016-07-20 15:10 | NUR ---
tranferred to [facility] per ambulence here .drg to liver biopsy is dry and intact.
--- NOTE | 2016-07-20 15:31 | DI ---
Indication:ITS.REASON: liver mass on CT, biliary obstruction and jaundice Ordering physician: Rashawn Renee D.O. Procedure:US BIOPSY LIVER Preprocedure INR this morning was 1.9. One unit of fresh frozen plasma had been administered and the second unit of fresh frozen plasma was hanging during the procedure. MONITORED IV SEDATION: The patient was given 1 mg Versed and 50 mcg fentanyl intravenously . This was administered by an ICU nurse. Continuous monitoring was performed during the procedure in radiology and also after the procedure in the patient's recovery room. Monitoring consisted of heart rate, pulse oximetry, and blood pressure. There is no complication. LIVER BIOPSY WITH ULTRASOUND GUIDANCE: After discussing the details of the procedure, including the risks, the patient wished to proceed. Informed consent was obtained. A preprocedural timeout was performed to confirm the correct patient and procedure. Using aseptic technique, local lidocaine anesthetic, and ultrasound guidance throughout, three passes using an 18-gauge 33mm throw core Biopince biopsy needle were performed to obtain three, 3 cm tissue samples of a lesion in the right lobe of liver, located just superior to the gallbladder. The tissue samples were placed in formalin and sent to lab for the requested studies. The patient tolerated this procedure well. Following this, the patient was taken back to his room on the medical floor in stable condition. Impression: Technically successful core biopsy of a large mass located in the right lobe of the liver, superior to the gallbladder. Rancho Foley RPA/CALI performed this under my personal supervision. .
== END 2016-07-20 15:15 | disposition short-term general hospital (02) | DRG 442 ==
LOC: ED 14:53 → EDHOLD 18:44 → CCU 20:15 → MED 07-17 16:43
PROVIDERS: ADMIT Internal Medicine; ATTEND Internal Medicine
PROC: 0FB13ZX Excision of Right Lobe Liver, Percutaneous Approach, Diagnostic (ICD-10-PCS; principal; 2016-07-20)
PROC: 30233K1 Transfusion of Nonautologous Frozen Plasma into Peripheral Vein, Percutaneous Approach (ICD-10-PCS; 2016-07-20)
DX: K75.0 Abscess of liver (principal); R17 Unspecified jaundice; I10 Essential (primary) hypertension; I48.91 Unspecified atrial fibrillation; E66.9 Obesity, unspecified; Z68.29 Body mass index [BMI] 29.0-29.9, adult; Z86.73 Personal history of transient ischemic attack (TIA), and cerebral infarction without residual deficits
CPT/HCPCS: 36415; 47000; 71010; 80053; 81001; 82248; 82378; 82977; 83605; 83690; 84145; 85007; 85025; 85027; 85610; 86301; 86900; 86901; 87040; 87086